=== PATIENT | male | born 1945 | race Caucasian/White ===

== ENCOUNTER 2016-05-17 15:22 | Outpatient (CLI) | payer MEDICARE, MEDICAID | END 2016-05-17 15:23 | disposition critical access hospital (66) | DX: S89.81XA Other specified injuries of right lower leg, initial encounter (principal); W32.0XXA Accidental handgun discharge, initial encounter; Y92.199 Unspecified place in other specified residential institution as the place of occurrence of the external cause | CPT/HCPCS: A0425; A0429 ==

== ENCOUNTER 2016-05-17 15:41 | Emergency (ER) | payer MEDICARE, MEDICAID ==
[2016-05-17] MEDS ORDERED: TETANUS/DIPHTHERIA/PERTUSSIS 0.5 ML SYRINGE IM ONE (15:55)
[2016-05-17] MEDS: TETANUS/DIPHTHERIA/PERTUSSIS 0.5 ML SYRINGE IM ONE (16:02)
[2016-05-17] MEDS ORDERED: CLINDAMYCIN 900 MG/50 ML 50 ML IV ONE (16:06)
[2016-05-17] MEDS: CLINDAMYCIN 900 MG/50 ML 50 ML IV ONE (16:07)
== END 2016-05-17 17:14 | disposition home or self-care (01) ==
DX: S81.031A Puncture wound without foreign body, right knee, initial encounter (principal); W32.0XXA Accidental handgun discharge, initial encounter; Z23 Encounter for immunization; Z88.0 Allergy status to penicillin; Z86.73 Personal history of transient ischemic attack (TIA), and cerebral infarction without residual deficits; Z79.82 Long term (current) use of aspirin

== ENCOUNTER 2016-08-03 19:26 | Emergency (ER) | payer MEDICARE, MEDICAID ==
--- NOTE | 2016-08-03 21:10 | ED Physician Documentation ---
PD HPI BACK PAIN - Stated complaint Stated Complaint: BACK PAIN - Chief complaint Chief Complaint: Back Pain - History obtained from History obtained from: Patient - History of Present Illness Timing - onset: How many days ago (1-2) Timing - details: Gradual onset, Still present, Waxing and waning Location: Lower, Right (radiating down right leg posteriorly.) Quality: Pain, Spasm Associated symptoms: No: Fever, Weakness, Numbness Improves with: Rest Worsened by: Movement Contributing factors: No: Lifting, Twisting Similar symptoms before: Has not had sx before Recently seen: Not recently seen Review of Systems Constitutional: denies: Fever, Chills Nose: denies: Rhinorrhea / runny nose, Congestion Throat: denies: Sore throat Respiratory: denies: Dyspnea, Cough GI: denies: Nausea, Vomiting, Diarrhea : denies: Dysuria, Frequency PD PAST MEDICAL HISTORY - Past Medical History Cardiovascular: None Respiratory: None Neuro: CVA Endocrine/Autoimmune: None GI: None : None HEENT: Chronic hearing loss Psych: None Musculoskeletal: None Derm: None - Past Surgical History Past Surgical History: Yes HEENT: Tonsil/Adenoidectomy Derm: Other - Present Medications Home Medications: Ambulatory Orders Medication Instructions Recorded Confirmed Aspirin [Aspir 81] 162 mg PO DAILY 04/25/13 08/15/14 Amlodipine Besylate [Norvasc] 10 mg DAILY 10/31/13 08/15/14 Atorvastatin [Lipitor] 40 mg QPM 10/31/13 08/15/14 Carvedilol 6.25 mg BID 10/31/13 08/15/14 Cetirizine HCl [Zyrtec] 10 mg DAILY 10/31/13 08/15/14 Fenofibrate 160 mg DAILY 10/31/13 08/15/14 Meclizine [Antivert] 25 mg PO Q6H PRN #20 tablet 10/31/13 08/15/14 Montelukast Sodium [Singulair] 10 mg DAILY 10/31/13 08/15/14 Potassium Chloride 10 meq DAILY 10/31/13 08/15/14 Valsartan/Hydrochlorothiazide DAILY 10/31/13 08/15/14 [Valsartan-Hctz 320-25 mg Tab] Clindamycin HCl 300 mg PO Q6H 7 Days 03/13/17 Dexamethasone [Decadron] 4 mg PO DAILY #5 tablet 08/03/16 Methocarbamol [Robaxin] 500 mg PO Q6H PRN #25 tablet 08/03/16 Naproxen 375 mg PO BID #20 tablet 08/03/16 Oxycodone HCl/Acetaminophen 1 each PO Q6H PRN #20 tablet 08/03/16 [Percocet 5-325 mg Tablet] - Allergies Allergies/Adverse Reactions: Allergies Allergy/AdvReac Type Severity Reaction Status Date / Time Penicillins Allergy swelling Verified 04/25/13 11:38 - Social History Does the pt smoke?: No Smoking Status: Never smoker Does the pt drink ETOH?: Yes Does the pt have substance abuse?: No - Immunizations Immunizations are current?: No Immunizations: TDAP current <10years - POLST Patient has POLST: No PD ED PE NORMAL - Vitals Vital signs reviewed: Yes - General General: Alert and oriented X 3, Well developed/nourished - Abdomen Abdomen: Soft, Non tender - Back Back: No CVA TTP, No spinal TTP, Other - Derm Derm: Normal color, Warm and dry, No rash - Neuro Neuro: Alert and oriented X 3, No motor deficit, No sensory deficit, Normal speech Results - Vitals Vitals: Oxygen O2 Source Room air PD MEDICAL DECISION MAKING - ED course Complexity details: considered differential (seems like muscular pain and no red flags. ), d/w patient Departure - Departure Disposition: 01 Home, Self Care Clinical Impression: Back strain Qualifiers: Encounter type: initial encounter Qualified Code(s): S39.012A - Strain of muscle, fascia and tendon of lower back, initial encounter Condition: Stable Record reviewed to determine appropriate education?: Yes Instructions: ED Sciatica, ED Low Back Pain Injury Prescriptions: Dexamethasone [Decadron] 4 mg PO DAILY #5 tablet Naproxen 375 mg PO BID #20 tablet Oxycodone HCl/Acetaminophen [Percocet 5-325 mg Tablet] 1 each PO Q6H PRN #20 tablet PRN Reason: Pain Methocarbamol [Robaxin] 500 mg PO Q6H PRN #25 tablet PRN Reason: Spasms Comments: Heat and gentle stretching for the low back. Naproxen twice daily for 7-10 days. Decadron steroid daily for 5 days. Robaxin muscle relaxant for stiffness/ spasms. Add percocet if needed for pain. Recheck with PMD if not improved over the next days/week. physician primary care sports medicine is good too for this. Discharge Date/Time: 08/03/16 22:04
[2016-08-03] MEDS ORDERED: oxyCODONE/ACET 5/325 Prepack 4 PO STA (21:27)
[2016-08-03] MEDS ORDERED: NAPROXEN 250 MG TABLET PO STA (21:27)
[2016-08-03] MEDS ORDERED: METHOCARBAMOL 500 MG TABLET PO STA (21:27)
[2016-08-03] MEDS ORDERED: DEXAMETHASONE 10 MG/ML VIAL PO STA (21:27)
[2016-08-03] MEDS ORDERED: oxyCOD/ACETAMIN 5 MG/325 MG TABLET PO STA (21:27)
[2016-08-03] MEDS ORDERED: oxyCOD/ACETAMIN 5 MG/325 MG TABLET PO ONE (21:37)
[2016-08-03] MEDS ORDERED: oxyCODONE/ACET 5/325 Prepack 4 PO ONE (21:38)
[2016-08-03] MEDS ORDERED: NAPROXEN 250 MG TABLET PO ONE (21:38)
[2016-08-03] MEDS ORDERED: CHERRY SYRUP 10 ML UDC PO ONE (21:39)
[2016-08-03] MEDS ORDERED: METHOCARBAMOL 500 MG TABLET PO ONE (21:39)
[2016-08-03] MEDS ORDERED: DEXAMETHASONE 10 MG/ML VIAL ONE (21:39)
[2016-08-03 22:01] VITALS: BP 186/89
== END 2016-08-03 22:04 | disposition home or self-care (01) ==
LOC: ED 19:26
DX: S39.012A Strain of muscle, fascia and tendon of lower back, initial encounter (principal); X58.XXXA Exposure to other specified factors, initial encounter; Z86.73 Personal history of transient ischemic attack (TIA), and cerebral infarction without residual deficits; Z79.82 Long term (current) use of aspirin
CPT/HCPCS: 99283; A9270

== ENCOUNTER 2016-08-20 03:41 | Emergency (ER) | payer MEDICARE, MEDICAID ==
--- NOTE | 2016-08-20 04:18 | ED Physician Documentation ---
PD HPI NVD - Stated complaint Stated Complaint: NAUSEA - Chief complaint Chief Complaint: Abd Pain - History obtained from History obtained from: Patient - History of Present Illness Timing - onset: Enter time (02:30), Today Timing - details: Abrupt onset Pain level max: 0 Pain level now: 0 Associated symptoms: Dizzy. No: Abdominal pain Improved by: Laying still Worsened by: Moving Recently seen: Not recently seen - Additonal information Additional information: c/o sudden onset dizziness with nausea and vomiting, onset while in bed 2:30 AM this morning. symptoms worse with turning head Review of Systems Constitutional: denies: Fever Eyes: reports: Reviewed and negative Ears: reports: Reviewed and negative Nose: reports: Reviewed and negative Cardiac: reports: Reviewed and negative GI: reports: Nausea, Vomiting. denies: Abdominal Pain Neurologic: denies: Headache PD PAST MEDICAL HISTORY - Past Medical History Cardiovascular: None Respiratory: None Neuro: CVA Endocrine/Autoimmune: None GI: None : None HEENT: Chronic hearing loss Psych: None Musculoskeletal: None Derm: None - Past Surgical History Past Surgical History: Yes HEENT: Tonsil/Adenoidectomy Derm: Other - Present Medications Home Medications: Ambulatory Orders Medication Instructions Recorded Confirmed Aspirin [Aspir 81] 162 mg PO DAILY 04/25/13 08/15/14 Amlodipine Besylate [Norvasc] 10 mg DAILY 10/31/13 08/15/14 Atorvastatin [Lipitor] 40 mg QPM 10/31/13 08/15/14 Carvedilol 6.25 mg BID 10/31/13 08/15/14 Cetirizine HCl [Zyrtec] 10 mg DAILY 10/31/13 08/15/14 Fenofibrate 160 mg DAILY 10/31/13 08/15/14 Meclizine [Antivert] 25 mg PO Q6H PRN #20 tablet 10/31/13 08/15/14 Montelukast Sodium [Singulair] 10 mg DAILY 10/31/13 08/15/14 Potassium Chloride 10 meq DAILY 10/31/13 08/15/14 Valsartan/Hydrochlorothiazide DAILY 10/31/13 08/15/14 [Valsartan-Hctz 320-25 mg Tab] Clindamycin HCl 300 mg PO Q6H 7 Days 05/17/16 Dexamethasone [Decadron] 4 mg PO DAILY #5 tablet 08/03/16 Methocarbamol [Robaxin] 500 mg PO Q6H PRN #25 tablet 08/03/16 Naproxen 375 mg PO BID #20 tablet 08/03/16 Oxycodone HCl/Acetaminophen 1 each PO Q6H PRN #20 tablet 08/03/16 [Percocet 5-325 mg Tablet] Meclizine [Antivert] 25 mg PO Q6H PRN #20 tablet 08/20/16 - Allergies Allergies/Adverse Reactions: Allergies Allergy/AdvReac Type Severity Reaction Status Date / Time Penicillins Allergy swelling Verified 04/25/13 11:38 - Social History Does the pt smoke?: No Smoking Status: Never smoker Does the pt drink ETOH?: Yes Does the pt have substance abuse?: No - Immunizations Immunizations are current?: No Immunizations: TDAP current <10years - POLST Patient has POLST: No PD ED PE NORMAL - Vitals Vital signs reviewed: Yes - General General: Alert and oriented X 3, Well developed/nourished, Other (NAD, but maintains head in same position (looking straight ahead) during H+P, as symptoms worse with turning of head) - HEENT HEENT: PERRL, EOMI, Moist mucous membranes - Neck Neck: Supple, no meningeal sign - Cardiac Cardiac: RRR, No murmur - Abdomen Abdomen: Soft, Non tender - Neuro Neuro: Alert and oriented X 3, recruitment officer 2-12 intact, No motor deficit, No sensory deficit, Normal speech Results - Vitals Vitals: Oxygen O2 Source Room air - Labs Labs: Laboratory Tests 08/20/16 08/20/16 04:47 04:47 WBC 9.2 RBC 5.26 Hgb 15.4 Hct 44.1 MCV 83.9 MCH 29.3 MCHC 34.9 RDW 14.2 Plt Count 151 MPV 7.5 Neut # 7.9 H Lymph # 0.9 L [place] # 0.4 Eos # 0.0 Baso # 0.0 Absolute Nucleated RBC 0.00 Nucleated RBCs 0.0 Sodium 141 Potassium 3.2 L Chloride 107 Carbon Dioxide 26 Anion Gap 8.0 BUN 17 Creatinine 0.9 Estimated GFR (MDRD) 83 L Glucose 118 H Calcium 8.5 - Rads (name of study) CT head Radiology: Prelim report reviewed, See rad report PD MEDICAL DECISION MAKING - ED course Complexity details: reviewed results, re-evaluated patient, considered differential, d/w patient ED course: On reevaluation, after tests resulted, patient reported significant improvement in symptoms (given PO antivert while awaiting test results). Results reviewed with patient and plan to d/c discussed; he is comfortable with plan to d/c home , return if worse Departure - Departure Disposition: 01 Home, Self Care Clinical Impression: Vertigo Condition: Good Instructions: ED Vertigo Unspecified Follow-Up: [facility] [Provider Group] [facility] [Provider Group] Prescriptions: Meclizine [Antivert] 25 mg PO Q6H PRN #20 tablet PRN Reason: Vertigo Discharge Date/Time: 08/20/16 06:30
[2016-08-20] MEDS ORDERED: MECLIZINE 12.5 MG TABLET PO ONE (04:39)
[2016-08-20] MEDS: MECLIZINE 12.5 MG TABLET PO STA (04:48)
[2016-08-20 04:53] LABS: BASOPHILS % (AUTO) 0.4 %; EOSINOPHILS % (AUTO) 0.5 %; HCT - HEMATOCRIT 44.1 % (42.0-52.0); HGB - HEMOGLOBIN 15.4 g/dL (14.0-18.0); LYMPHOCYTES # (AUTO) 0.9 10^3/uL (1.5-3.5); LYMPHOCYTES % (AUTO) 9.6 %; MEAN CORPUSCULAR HEMOGLOBIN 29.3 pg (27.0-31.0); MEAN CORPUSCULAR HGB CONC 34.9 g/dL (32.0-36.0); MEAN CORPUSCULAR VOLUME 83.9 fL (80.0-94.0); MEAN PLATELET VOLUME 7.5 fL (7.4-11.4); MONOCYTES # (AUTO) 0.4 10^3/uL (0.0-1.0); MONOCYTES % (AUTO) 4.2 %; NEUTROPHILS # (AUTO) 7.9 10^3/uL (1.5-6.6); NEUTROPHILS % (AUTO) 85.3 %; RED BLOOD COUNT 5.26 10^6/uL (4.70-6.10); RED CELL DISTRIBUTION WIDTH 14.2 % (12.0-15.0); UNCORRECTED WHITE BLOOD COUNT 9.2 x10^3/uL; WHITE BLOOD COUNT 9.2 x10^3/uL (4.8-10.8)
[2016-08-20 05:01] LABS: CALCIUM 8.5 mg/dL (8.5-10.3); CREATININE 0.9 mg/dL (0.6-1.2); POTASSIUM 3.2 mmol/L (3.5-5.0)
--- NOTE | 2016-08-20 05:32 | CT Preliminary Report ---
Exam: CT Head W/O IMPRESSION: No acute intracranial process identified. Stable findings since 10/31/2013. [facility] SITE ID: [id number]
--- NOTE | 2016-08-20 05:35 | CT Report ---
EXAM: CT HEAD EXAM DATE: 08/20/2016 05:17 AM. CLINICAL HISTORY: Dizziness. COMPARISON: 10/31/2013. TECHNIQUE: Multiaxial CT images were obtained from the foramen magnum to the vertex. IV contrast: Non e. Reformats: Coronal. In accordance with CT protocol optimization, one or more of the following dose reduction techniques w ere utilized for this exam: automated exposure control, adjustment of mA and/or KV based on patient s ize, or use of iterative reconstructive technique. FINDINGS: Parenchyma: No intraparenchymal hemorrhage. No evidence of mass, midline shift, or CT findings of acu te infarction. Dsouza-white differentiation is distinct. Small, old area of injury right thalamus/poste rior limb internal capsule, unchanged. Extraaxial Spaces: Normal for age. No subdural or epidural collections identified. Ventricles: Normal in size and position. Sinuses: Imaged paranasal sinuses, orbits, and mastoids show no significant abnormality. Bones: No evidence of fracture or calvarial defect. Other: None. IMPRESSION: No acute intracranial process identified. Stable findings since 10/31/2013. [facility] Referring Provider Line: [phone] SITE ID: [id number]
[2016-08-20 06:29] VITALS: BP 189/90
== END 2016-08-20 06:30 | disposition home or self-care (01) ==
LOC: ED 03:41
DX: R42 Dizziness and giddiness (principal); Z86.73 Personal history of transient ischemic attack (TIA), and cerebral infarction without residual deficits
CPT/HCPCS: 36415; 70450; 80048; 85025; 99283

== ENCOUNTER 2016-10-31 18:10 | Emergency (ER) | payer MEDICARE, MEDICAID ==
[2016-10-31 18:19] VITALS: BP 171/91
--- NOTE | 2016-10-31 18:30 | ED Physician Documentation ---
PD HPI BACK INJURY - Stated complaint Stated Complaint: BACK PAIN/ARM LAC - History obtained from History obtained from: Patient - History of Present Illness Location: Other (He was working at home, standing up on a cinder block to fix something in the cinderblock tilted and he fell hitting his back and right forearm on the ground. The right forearm is not painful but does have a scrape on it, his last tetanus shot he says was about 5 months ago. He has severe right-sided mid and low back pain that is worse with motion. No head or neck injury. He can walk and bear weight without issue.) Review of Systems Constitutional: denies: Fever, Chills Cardiac: reports: Reviewed and negative Respiratory: reports: Reviewed and negative GI: reports: Reviewed and negative PD PAST MEDICAL HISTORY - Past Medical History Cardiovascular: None Respiratory: None Neuro: CVA Endocrine/Autoimmune: None GI: None : None HEENT: Chronic hearing loss Psych: None Musculoskeletal: None Derm: None - Past Surgical History Past Surgical History: Yes HEENT: Tonsil/Adenoidectomy Derm: Other - Present Medications Home Medications: Ambulatory Orders Medication Instructions Recorded Confirmed Amlodipine Besylate [Norvasc] 10 mg PO DAILY 10/31/13 10/31/16 Atorvastatin [Lipitor] 40 mg PO QPM 10/31/13 10/31/16 Carvedilol 6.25 mg PO BID 10/31/13 10/31/16 Cetirizine HCl [Zyrtec] 10 mg PO DAILY 10/31/13 10/31/16 Fenofibrate 160 mg PO DAILY 10/31/13 10/31/16 Montelukast Sodium [Singulair] 10 mg PO DAILY 10/31/13 10/31/16 Potassium Chloride 10 meq PO DAILY 10/31/13 10/31/16 Valsartan/Hydrochlorothiazide 1 tab PO DAILY 10/31/13 10/31/16 [Valsartan-Hctz 320-25 mg Tab] Dexamethasone [Decadron] 4 mg PO DAILY #5 tablet 08/03/16 10/31/16 Methocarbamol [Robaxin] 500 mg PO Q6H PRN #25 tablet 08/03/16 10/31/16 HYDROcod/ACETAM 5/325 [[place] 5/325] 1 - 2 ea PO Q6H PRN #20 tablet 10/31/16 - Allergies Allergies/Adverse Reactions: Allergies Allergy/AdvReac Type Severity Reaction Status Date / Time Penicillins Allergy swelling Verified 10/31/16 18:16 - Social History Does the pt smoke?: No Smoking Status: Never smoker Does the pt drink ETOH?: Yes Does the pt have substance abuse?: No - Immunizations Immunizations are current?: No Immunizations: TDAP current <10years - POLST Patient has POLST: No PD ED PE NORMAL - Vitals Vital signs reviewed: Yes - General General: Alert and oriented X 3, Well developed/nourished, Other (Comfortable at rest, winces with motion) - HEENT HEENT: PERRL, EOMI - Neck Neck: Supple, no meningeal sign, No bony TTP - Cardiac Cardiac: RRR, No murmur - Respiratory Respiratory: No respiratory distress, Clear bilaterally - Abdomen Abdomen: Non tender - Back Back: Other (He does have some midline spinal tenderness, maybe around L2 and over the right suggesting may be a transverse process fracture. The lower ribs are nontender posteriorly.) - Derm Derm: Normal color, Warm and dry - Extremities Extremities: No deformity, No tenderness to palpate, No edema, No calf tenderness / cord, Other (There are linear abrasions on the medial side of the right forearm but without underlying bony tenderness or limited range of motion. The remainder of his extremities are nontender.) - Neuro Neuro: Alert and oriented X 3, Normal speech - Psych Psych: Normal mood, Normal affect Results - Vitals Vitals: Vital Signs - 24 hr 10/31/16 18:16 Temperature 36.4 C L Heart Rate 56 L Respiratory 18 Rate Blood Pressure 171/91 H O2 Saturation 100 Oxygen O2 Source Room air - Rads (name of study) Ct L spine Radiology: EMP read contemporaneously (Nondisplaced fracture of the right L1 transverse process and degenerative changes) R forearm Radiology: EMP read contemporaneously (normal) PD MEDICAL DECISION MAKING - ED course ED course: 71-year-old after a fall from just above ground-level, clinically with what is likely a transverse process fracture which is shown on CT, no other major injuries identified. He was given 6 Vicodin here to go. The patient and family were counseled as to the diagnosis and need for follow- up. I counseled the patient with regard to signs and symptoms that would necessitate an urgent reevaluation in the emergency department. They understand they are welcome to return at any time if worse or if not improving as expected. This document was made in part using voice recognition software. While efforts are made to proofread this documents, sound alike and grammatical errors may occur. Departure - Departure Disposition: 01 Home, Self Care Clinical Impression: Lumbar transverse process fracture Qualifiers: Encounter type: initial encounter Fracture type: closed Qualified Code(s): S32.008A - Other fracture of unspecified lumbar vertebra, initial encounter for closed fracture Contusion of right lower arm Qualifiers: Encounter type: initial encounter Qualified Code(s): S50.11XA - Contusion of right forearm, initial encounter Fall Qualifiers: Encounter type: initial encounter Qualified Code(s): W19.XXXA - Unspecified fall, initial encounter Abrasion of right arm Qualifiers: Encounter type: initial encounter Qualified Code(s): S40.811A - Abrasion of right upper arm, initial encounter Condition: Good Record reviewed to determine appropriate education?: Yes Instructions: ED Abrasion, ED Fx Transverse Spinous Process Prescriptions: HYDROcod/ACETAM 5/325 [[place] 5/325] 1 - 2 ea PO Q6H PRN #20 tablet PRN Reason: Pain Comments: Call your doctor to arrange a follow-up appointment, make the next available appointment. In the interim, return anytime if worse or if new symptoms develop. Your blood pressure was elevated today on check into the emergency department. This does not mean that you have hypertension, it is a common phenomenon to come to the emergency department and have elevated blood pressure. I recommend that she see her primary care physician within the week to have it rechecked when you are feeling better. Do not drink or drive while taking narcotic pain medication. Note that many narcotic pain relievers also contain Tylenol/acetaminophen. Please ensure that your total dose of acetaminophen from all sources does not exceed 3 g (3000 mg) per day. You may get constipated while on this medication. Take a stool softener such as Colace twice a day while you are on it. Also add an kzdy-zfi-furyklg laxative such as senna or MiraLAX on any day that you do not have a bowel movement. If you received a narcotic pain medication or sedative while in the emergency department, do not drive for the next 24 hours. Discharge Date/Time: 10/31/16 19:53
[2016-10-31] MEDS ORDERED: HYDROcod/ACETAM 5/325 MG TABLET PO STA (18:48)
[2016-10-31] MEDS ORDERED: HYDROcod/ACET 5/325 Prepack 6 PO STA (18:48)
[2016-10-31] MEDS ORDERED: HYDROcod/ACETAM 5/325 MG TABLET ONE (18:57)
[2016-10-31] MEDS ORDERED: HYDROcod/ACET 5/325 Prepack 6 PO ONE (18:57)
--- NOTE | 2016-10-31 19:14 | CT Preliminary Report ---
Exam: CT Lumbar Spine W/O IMPRESSION: Nondisplaced fracture of the right L1 transverse process. Degenerative changes. [facility] SITE ID: [id number]
--- NOTE | 2016-10-31 19:17 | CT Report ---
EXAM: CT LUMBAR SPINE WITHOUT CONTRAST EXAM DATE: 10/31/2016 06:48 PM. CLINICAL HISTORY: Back inj. COMPARISONS: None. TECHNIQUE: Thin-section axial images were acquired of the lumbar spine from T12 to S1 without contras t. Post-processing: Coronal and sagittal reformats. Other: None. In accordance with CT protocol optimization, one or more of the following dose reduction techniques w ere utilized for this exam: automated exposure control, adjustment of mA and/or KV based on patient s ize, or use of iterative reconstructive technique. FINDINGS: Alignment: Normal. No scoliosis or spondylolisthesis. Bones: Five [id number] lumbar vertebral bodies are present. There is a nondisplaced fracture of the right transverse process of L1. Sclerotic foci are seen in the L4 and S1 vertebral bodies, likely representing bone islands. Disk Levels/Facets: T12-L1: Unremarkable. L1-L2: Unremarkable. L2-L3: Mild broad-based disk bulge, without significant spinal or foraminal narrowing. L3-L4: Mild broad-based disk bulge, without significant spinal or foraminal narrowing. L4-L5: Moderate broad-based disk bulge, with facet hypertrophy, producing bilateral foraminal narrowi ng. No significant spinal stenosis. L5-S1: Bulky facet osteophytes and disk osteophyte, producing bilateral foraminal narrowing. Musculature: Normal. No fatty atrophy. Other: The visualized pelvic cavity is unremarkable. IMPRESSION: Nondisplaced fracture of the right L1 transverse process. Degenerative changes. [facility] Referring Provider Line: [phone] SITE ID: [id number]
--- NOTE | 2016-10-31 19:22 | XRAY Preliminary Report ---
Exam: XR Forearm RT IMPRESSION: No evidence of fracture or dislocation. [facility] SITE ID: [id number]
--- NOTE | 2016-10-31 19:24 | XRAY Report ---
EXAM: RIGHT FOREARM RADIOGRAPHY EXAM DATE: 10/31/2016 07:14 PM. CLINICAL HISTORY: Pain COMPARISON: None. TECHNIQUE: 2 views. FINDINGS: Bones: Normal. No fractures or bone lesions. Joints: Normal. No effusions or subluxations in the visualized wrist or elbow joints. Soft Tissues: No significant abnormalities. IMPRESSION: No evidence of fracture or dislocation. [facility] Referring Provider Line: [phone] SITE ID: [id number]
== END 2016-10-31 19:53 | disposition home or self-care (01) ==
LOC: ED 18:10
DX: S32.008A Other fracture of unspecified lumbar vertebra, initial encounter for closed fracture (principal); S50.11XA Contusion of right forearm, initial encounter; W19.XXXA Unspecified fall, initial encounter; Y93.H9 Activity, other involving exterior property and land maintenance, building and construction; Y92.096 Garden or yard of other non-institutional residence as the place of occurrence of the external cause; Z86.73 Personal history of transient ischemic attack (TIA), and cerebral infarction without residual deficits
CPT/HCPCS: 72131; 73090; 99283; 99284; A9270

== ENCOUNTER 2016-11-01 13:26 | Emergency (ER) | payer MEDICARE, MEDICAID ==
[2016-11-01] MEDS ORDERED: KETOROLAC 60 MG/2 ML VIAL IM STA (15:32)
[2016-11-01] MEDS ORDERED: HYDROmorphone 1 MG/ML SYRINGE IM STA (15:32)
[2016-11-01] MEDS ORDERED: METHOCARBAMOL 500 MG TABLET PO STA (15:32)
--- NOTE | 2016-11-01 15:35 | ED Physician Documentation ---
History of Present Illness - Stated complaint Stated Complaint: BACK/RIB PX - Chief complaint Chief Complaint: General - History obtained from History obtained from: Patient - History of Present Illness Timing: Other (Seen here by me yesterday after a fall and has an L1 transverse process fracture. Despite taking hydrocodone overnight he did not sleep at all and every time he moves he develops a burning pain focused over the lumbar spine that is quite severe.) Review of Systems Constitutional: denies: Fever, Chills, Myalgias : denies: Dysuria, Frequency Skin: denies: Rash, Lesions Musculoskeletal: denies: Neck pain PD PAST MEDICAL HISTORY - Past Medical History Cardiovascular: None Respiratory: None Neuro: CVA Endocrine/Autoimmune: None GI: None : None HEENT: Chronic hearing loss Psych: None Musculoskeletal: None Derm: None - Past Surgical History Past Surgical History: Yes HEENT: Tonsil/Adenoidectomy Derm: Other - Present Medications Home Medications: Ambulatory Orders Medication Instructions Recorded Confirmed Amlodipine Besylate [Norvasc] 10 mg PO DAILY 10/31/13 10/31/16 Atorvastatin [Lipitor] 40 mg PO QPM 10/31/13 10/31/16 Carvedilol 6.25 mg PO BID 10/31/13 10/31/16 Cetirizine HCl [Zyrtec] 10 mg PO DAILY 10/31/13 10/31/16 Fenofibrate 160 mg PO DAILY 10/31/13 10/31/16 Montelukast Sodium [Singulair] 10 mg PO DAILY 10/31/13 10/31/16 Potassium Chloride 10 meq PO DAILY 10/31/13 10/31/16 Valsartan/Hydrochlorothiazide 1 tab PO DAILY 10/31/13 10/31/16 [Valsartan-Hctz 320-25 mg Tab] Dexamethasone [Decadron] 4 mg PO DAILY #5 tablet 08/03/16 10/31/16 Methocarbamol [Robaxin] 500 mg PO Q6H PRN #25 tablet 08/03/16 10/31/16 HYDROcod/ACETAM 5/325 [[place] 5/325] 1 - 2 ea PO Q6H PRN #20 tablet 10/31/16 Gabapentin 300 mg PO TID #30 capsule 11/01/16 Methocarbamol [Robaxin] 500 mg PO Q6H #20 tablet 11/01/16 Oxycodone HCl/Acetaminophen 1 - 2 tab PO Q4H PRN #15 tablet 11/01/16 [Percocet 5-325 mg Tablet] - Allergies Allergies/Adverse Reactions: Allergies Allergy/AdvReac Type Severity Reaction Status Date / Time Penicillins Allergy swelling Verified 11/01/16 13:44 - Social History Does the pt smoke?: No Smoking Status: Never smoker Does the pt drink ETOH?: Yes Does the pt have substance abuse?: No - Immunizations Immunizations are current?: No Immunizations: TDAP current <10years - POLST Patient has POLST: No PD ED PE NORMAL - Vitals Vital signs reviewed: Yes - General General: Alert and oriented X 3, No acute distress - Abdomen Abdomen: Soft, Non tender - Extremities Extremities: No deformity, No tenderness to palpate - Neuro Neuro: Alert and oriented X 3, Normal speech Results - Vitals Vitals: Vital Signs - 24 hr 11/01/16 13:40 Temperature 36.4 C L Heart Rate 63 Respiratory 16 Rate Blood Pressure 167/85 H O2 Saturation 97 Oxygen O2 Source Room air PD MEDICAL DECISION MAKING - ED course ED course: 71-year-old gentleman with L1 transverse process fracture bounces back with inadequate pain control. He was administered Toradol, Dilaudid, and Robaxin here and prescriptions as shown. No other new evident injuries. Departure - Departure Disposition: 01 Home, Self Care Clinical Impression: Lumbar transverse process fracture Qualifiers: Encounter type: initial encounter Fracture type: closed Qualified Code(s): S32.008A - Other fracture of unspecified lumbar vertebra, initial encounter for closed fracture Condition: Good Record reviewed to determine appropriate education?: Yes Instructions: ED Fx Transverse Spinous Process Prescriptions: Gabapentin 300 mg PO TID #30 capsule Oxycodone HCl/Acetaminophen [Percocet 5-325 mg Tablet] 1 - 2 tab PO Q4H PRN #15 tablet PRN Reason: Pain Methocarbamol [Robaxin] 500 mg PO Q6H #20 tablet Comments: Call your doctor to arrange a follow-up appointment, make the next available appointment. In the interim, return anytime if worse or if new symptoms develop. Do not drink or drive while taking narcotic pain medication. Note that many narcotic pain relievers also contain Tylenol/acetaminophen. Please ensure that your total dose of acetaminophen from all sources does not exceed 3 g (3000 mg) per day. You may get constipated while on this medication. Take a stool softener such as Colace twice a day while you are on it. Also add an qync-usv-nvvrten laxative such as senna or MiraLAX on any day that you do not have a bowel movement. If you received a narcotic pain medication or sedative while in the emergency department, do not drive for the next 24 hours. Your blood pressure was elevated today on check into the emergency department. This does not mean that you have hypertension, it is a common phenomenon to come to the emergency department and have elevated blood pressure. I recommend that she see her primary care physician within the week to have it rechecked when you are feeling better.
[2016-11-01] MEDS ORDERED: HYDROmorphone 1 MG/ML SYRINGE ONE (15:43)
[2016-11-01] MEDS ORDERED: METHOCARBAMOL 500 MG TABLET PO ONE (15:44)
[2016-11-01] MEDS ORDERED: KETOROLAC 60 MG/2 ML VIAL ONE (15:44)
[2016-11-01 16:16] VITALS: BP 178/92
== END 2016-11-01 16:14 | disposition home or self-care (01) ==
LOC: ED 13:26
DX: S32.018A Other fracture of first lumbar vertebra, initial encounter for closed fracture (principal); W19.XXXA Unspecified fall, initial encounter; R03.0 Elevated blood-pressure reading, without diagnosis of hypertension; Z86.73 Personal history of transient ischemic attack (TIA), and cerebral infarction without residual deficits
CPT/HCPCS: 96372; 99282; 99284; A9270; J1170

== ENCOUNTER 2017-01-20 16:50 | Emergency (ER) | payer MEDICARE, MEDICAID ==
[2017-01-20] MEDS ORDERED: SODIUM CHLORIDE 0.9% 1,000 ML IV ONE (17:08)
[2017-01-20 17:21] LABS: BASOPHILS # (AUTO) 0.1 10^3/uL (0.0-0.1); BASOPHILS % (AUTO) 0.7 %; EOSINOPHILS % (AUTO) 0.2 %; HCT - HEMATOCRIT 46.2 % (42.0-52.0); HGB - HEMOGLOBIN 15.8 g/dL (14.0-18.0); LYMPHOCYTES # (AUTO) 1.4 10^3/uL (1.5-3.5); LYMPHOCYTES % (AUTO) 16.2 %; MEAN CORPUSCULAR HGB CONC 34.3 g/dL (32.0-36.0); MEAN CORPUSCULAR VOLUME 84.5 fL (80.0-94.0); MEAN PLATELET VOLUME 7.6 fL (7.4-11.4); MONOCYTES # (AUTO) 0.4 10^3/uL (0.0-1.0); MONOCYTES % (AUTO) 4.8 %; NEUTROPHILS # (AUTO) 6.9 10^3/uL (1.5-6.6); NEUTROPHILS % (AUTO) 78.1 %; NUCLEATED RED BLOOD CELLS AUTO 0.1 /100WBC; RED BLOOD COUNT 5.46 10^6/uL (4.70-6.10); RED CELL DISTRIBUTION WIDTH 14.7 % (12.0-15.0); UNCORRECTED WHITE BLOOD COUNT 8.9 x10^3/uL; WHITE BLOOD COUNT 8.9 x10^3/uL (4.8-10.8)
--- NOTE | 2017-01-20 17:30 | XRAY Preliminary Report ---
Exam: XR CHEST 1 VIEW IMPRESSION: No acute disease. [facility] SITE ID: [id number]
[2017-01-20 17:31] LABS: PT - PROTHROMBIN TIME 11.6 secs (9.9-12.6)
[2017-01-20 17:32] LABS: ALBUMIN/GLOBULIN RATIO 1.7 (1.0-2.2); BILIRUBIN,TOTAL 2.7 mg/dL (0.2-1.0); CALCIUM 9.2 mg/dL (8.5-10.3); CREATININE 1.1 mg/dL (0.6-1.2); TOTAL PROTEIN 7.4 g/dL (6.7-8.2)
--- NOTE | 2017-01-20 17:33 | XRAY Report ---
EXAM: CHEST RADIOGRAPHY EXAM DATE: 01/20/2017 05:19 PM. CLINICAL HISTORY: Shortness of breath . COMPARISON: 05/04/2013. TECHNIQUE: 1 view. FINDINGS: Lungs/Pleura: Clear. No effusion or pneumothorax. Mediastinum: Mild cardiomegaly, probably unchanged. Upper lobe vessels not distended. Other: Degenerative changes. IMPRESSION: No acute disease. [facility] Referring Provider Line: [phone] SITE ID: [id number]
[2017-01-20 17:35] LABS: PARTIAL THROMBOPLASTIN TIME 25.1 secs (24.9-33.3)
--- NOTE | 2017-01-20 17:45 | ED Physician Documentation ---
History of Present Illness - Stated complaint Stated Complaint: DIZZY/NAUSEA/SHIVERS - Chief complaint Chief Complaint: Neuro - History obtained from History obtained from: Patient (pt reports that this morning after he woke up he had an episode of vertigo that came on suddenly and caused him to have nausea. He reports that event resolved completely with time then at about 1530 or 1600 this afternoon he had another episode of vertigo and a headache in the back of his head.) - History of Present Illness Worsened by: position Review of Systems Ten Systems: 10 systems reviewed and negative Constitutional: denies: Fever, Chills, Fatigue Eyes: denies: Loss of vision, Photophobia Ears: denies: Tinnitus/ringing Nose: denies: Rhinorrhea / runny nose, Congestion Throat: denies: Sore throat Cardiac: denies: Chest pain / pressure, Palpitations Respiratory: reports: Dyspnea. denies: Cough, Wheezing GI: reports: Nausea (because of the vertiog). denies: Abdominal Pain, Vomiting , Constipation, Diarrhea : denies: Dysuria, Frequency Skin: denies: Rash, Lesions Musculoskeletal: denies: Neck pain Neurologic: reports: Headache. denies: Generalized weakness, Focal weakness, Numbness, Difficulty speaking, Near syncope, Syncope, Confused, Head injury, LOC PD PAST MEDICAL HISTORY - Past Medical History Cardiovascular: Hypertension Respiratory: None Neuro: CVA Endocrine/Autoimmune: None GI: None : None HEENT: Chronic hearing loss Psych: None Musculoskeletal: None Derm: None - Past Surgical History Past Surgical History: Yes HEENT: Tonsil/Adenoidectomy Derm: Other - Allergies Allergies/Adverse Reactions: Allergies Allergy/AdvReac Type Severity Reaction Status Date / Time Penicillins Allergy swelling Verified 01/20/17 17:17 - Social History Does the pt smoke?: No Smoking Status: Never smoker Does the pt drink ETOH?: Yes Does the pt have substance abuse?: No - Immunizations Immunizations are current?: No Immunizations: TDAP current <10years - POLST Patient has POLST: No PD ED PE NORMAL - Vitals Vital signs reviewed: Yes - General General: Alert and oriented X 3, No acute distress - HEENT HEENT: Atraumatic, PERRL, Ears normal, Moist mucous membranes - Neck Neck: Supple, no meningeal sign - Cardiac Cardiac: RRR, No murmur, No gallop - Respiratory Respiratory: No respiratory distress, Other (increased respiratory rate) - Back Back: No CVA TTP - Derm Derm: Normal color, Warm and dry, No rash - Extremities Extremities: No deformity, Normal ROM s pain, No edema - Neuro Neuro: Alert and oriented X 3, manager generation 2-12 intact, No motor deficit, No sensory deficit Eye Opening: Spontaneous Motor: Obeys Commands Verbal: Oriented GCS Score: 15 - Psych Psych: Normal mood PD ED PE EXPANDED - Neuro Neuro: Alert and Oriented X 3, Normal motor, Normal Sensation, Normal Speech, CNII-XII intact, PERRL, Cerebellar nl, Normal gait, Normal speech. No: Confused , Lethargic, Weakness, Abnormal sensation, Nystagmus, Aphasia, Dysarthria Results - Vitals Vitals: Vital Signs - 24 hr 01/20/17 01/20/17 01/20/17 16:54 17:28 18:12 Temperature 36.6 C Heart Rate 63 60 61 Respiratory 18 18 14 Rate Blood Pressure 215/99 H 185/98 H 205/95 H O2 Saturation 100 100 100 01/20/17 19:17 Temperature Heart Rate 65 Respiratory 16 Rate Blood Pressure 189/97 H O2 Saturation 100 Oxygen O2 Source Room air - EKG (time done) 1657 Rate: Rate (enter#) Rhythm: NSR [place]: Normal Intervals: Normal NM, QRS normal (496 ms). No: Prolonged QT QRS: Normal Ischemia: Normal ST segments. No: ST depression - Labs Labs: Laboratory Tests 01/20/17 01/20/17 01/20/17 17:15 17:15 17:15 WBC 8.9 RBC 5.46 Hgb 15.8 Hct 46.2 MCV 84.5 MCH 29.0 MCHC 34.3 RDW 14.7 Plt Count 193 MPV 7.6 Neut # 6.9 H Lymph # 1.4 L Carter # 0.4 Eos # 0.0 Baso # 0.1 Absolute Nucleated RBC 0.01 Nucleated RBC % 0.1 PT 11.6 INR 1.0 APTT 25.1 Sodium 139 Potassium 4.0 Chloride 103 Carbon Dioxide 27 Anion Gap 9.0 BUN 17 Creatinine 1.1 Estimated GFR (MDRD) 66 L Glucose 113 H Calcium 9.2 Total Bilirubin 2.7 H AST 21 ALT 19 Alkaline Phosphatase 85 Troponin I B-Natriuretic Peptide Total Protein 7.4 Albumin 4.7 Globulin 2.7 Albumin/Globulin Ratio 1.7 Lipase 26 01/20/17 01/20/17 17:15 17:15 WBC RBC Hgb Hct MCV MCH MCHC RDW Plt Count MPV Neut # Lymph # Carter # Eos # Baso # Absolute Nucleated RBC Nucleated RBC % PT INR APTT Sodium Potassium Chloride Carbon Dioxide Anion Gap BUN Creatinine Estimated GFR (MDRD) Glucose Calcium Total Bilirubin AST ALT Alkaline Phosphatase Troponin I < 0.04 B-Natriuretic Peptide 67 Total Protein Albumin Globulin Albumin/Globulin Ratio Lipase - Rads (name of study) CXR Radiology: Final report received, EMP read contemporaneously Head and neck CT angio Radiology: Final report received PD MEDICAL DECISION MAKING - ED course Complexity details: d/w patient ED course: Pt state that he has not taken any of his home medication in "some time" because there was a 'mix up" at the pharmacy. Pt has HTN but has not taken his medications. He reported a complete resolution of his symptoms while in the ER. CXR neg, doubt acute pathology. his sx upon presentation seemed to be made worse by his anxiety around the situation. he has a normal neuro exam. Doubt TIA or posterior circulation clot or CVA. His vertigo was sudden in onset and causing nausea and was positional and seemed to be more C/W BPPV. discussed with the pt. he was given return precautions. Departure - Departure Disposition: 01 Home, Self Care Clinical Impression: Vertigo, Thyroid nodule Hypertension Qualifiers: Hypertension type: unspecified Qualified Code(s): I10 - Essential (primary) hypertension Condition: Good Instructions: ED Dizziness UKO, Hypertension Control Follow-Up: primary,care provider [Other] Comments: You need to follow up with your primary care provider to discuss your medications. There was a thyroid nodule seen on the CT scan that we did that you need to follow up with your primary care provider to discuss further work up. Return to the ER for any new or worsening symptoms.
[2017-01-20] MEDS ORDERED: IOPAMIDOL-300 100 ML VIAL ONE (17:49)
[2017-01-20] MEDS ORDERED: IOPAMIDOL-300 100 ML VIAL IVP ONE (18:13)
--- NOTE | 2017-01-20 19:04 | CT Preliminary Report ---
Exam: CT HEAD ANGIO IMPRESSION: CT Head: 1. No intracranial hemorrhage. 2. No enhancing mass. 3. A remote ischemic event is seen along the lateral margin of the right thalamus CTA Head: 1. Areas of intracranial stenosis are discussed above. This involves both the anterior and the human factors scientist ior circulation. 2. No thrombus is present in the M1 segment of either MCA or the basilar trunk. 3. The basilar artery is small likely due to the presence of a posterior communicating artery bilater ally. 4. No aneurysm is identified. [facility] SITE ID: [id number]
--- NOTE | 2017-01-20 19:13 | CT Preliminary Report ---
Exam: CT NECK ANGIO IMPRESSION: 1. No significant atherosclerotic plaque or narrowing is seen in either cervical ICA or cervical vert ebral artery. 2. The right vertebral artery is dominant. The left vertebral artery is small throughout its course f elt to be on developmental basis. 3. There is a peripherally hypervascular nodule in the right thyroid lobe. CT cannot distinguish rain gn from malignant thyroid disease. [facility] SITE ID: [id number]
--- NOTE | 2017-01-20 19:16 | CT Report ---
EXAM: CT ANGIOGRAM NECK EXAM DATE: 01/20/2017 06:24 PM. CLINICAL HISTORY: Vertigo. Technologist note states lightheaded and nauseous this morning and afterno on. History of prior stroke COMPARISON: CT angiogram head from today. TECHNIQUE: Routine axial helical imaging was performed from the skull base through the aortic arch. I V Contrast: 80 cc Isovue 300. Reconstructions: Routine multiplanar 3D MIP reconstructions. Evaluation of arterial stenosis is based on a NASCET method of measurement. In accordance with CT protocol optimization, one or more of the following dose reduction techniques w ere utilized for this exam: automated exposure control, adjustment of mA and/or KV based on patient s ize, or use of iterative reconstructive technique. FINDINGS: Right Carotid: The common carotid, internal carotid, and external carotid arteries are widely patent. No dissection, significant atherosclerotic plaque, or calcification identified. Left Carotid: The common carotid, internal carotid, and external carotid arteries are widely patent. No dissection, significant atherosclerotic plaque, or calcification identified. Vertebrals: The right vertebral artery is dominant. The left vertebral artery is small throughout its course. No significant narrowing is seen in the dominant right vertebral artery. Great vessel origins: No high-grade stenosis Other: No mass is present in either parotid gland or submandibular gland. No mass is present in the floor of mouth or the nasopharynx. The parapharyngeal fat is symmetric. No bulky lymphadenopathy is identifie d along either jugular chain. A thyroid nodule measuring up to 12 mm in size as seen on the right. Th is is hypervascular at its periphery. No bulky lymphadenopathy is seen in the visualized upper mediastinum. No suspicious spiculated masses present within either lung apex. IMPRESSION: 1. No significant atherosclerotic plaque or narrowing is seen in either cervical ICA or cervical vert ebral artery. 2. The right vertebral artery is dominant. The left vertebral artery is small throughout its course f elt to be on developmental basis. 3. There is a peripherally hypervascular nodule in the right thyroid lobe. CT cannot distinguish rain gn from malignant thyroid disease. [facility] Referring Provider Line: [phone] SITE ID: [id number]
--- NOTE | 2017-01-20 19:17 | CT Report ---
EXAM: CT ANGIOGRAM HEAD. CT SCAN OF THE HEAD WITHOUT AND WITH CONTRAST. EXAM DATE: 01/20/2017 06:02 PM CLINICAL HISTORY: Vertigo. Technologist note states headache and nausea this morning. Stroke 8 years ago. COMPARISON: CT head 08/10/2016. TECHNIQUE: 1. Using a multidetector scanner, axial images were acquired from the foramen magnum to the skull manav trevor prior to and following contrast administration. 2. Using a multidetector scanner, high-resolution axial images were acquired from the skull base thro ugh vertex following rapid infusion of intravenous contrast. Reformats: Multiplanar MIP reformats wer e reconstructed. Nascet criteria used for stenosis measurement. IV Contrast: 80 mL Isovue-300. In accordance with CT protocol optimization, one or more of the following dose reduction techniques w ere utilized for this exam: automated exposure control, adjustment of mA and/or KV based on patient s ize, or use of iterative reconstructive technique. FINDINGS: CT HEAD: Ventricles and sulci are within normal limits. Dsouza-white matter differentiation is preserved. No int racranial hemorrhage is present. Low attenuation along the lateral margin of the right thalamus is st able consistent with a remote infarct. No enhancing mass is identified in the brain parenchyma Mastoid air cells are well aerated. Calvarium is intact. CT ANGIOGRAM HEAD: The A1 segment of the right TE is developmentally absent with an anterior communicating artery prese nt. Mild narrowing is seen involving the proximal M1 segment of the left MCA. Mild narrowing is seen throughout the M1 segment of the right MCA. There are areas of mild narrowing in the M2 segments of e ach MCA. No filling defect is identified in the M1 segment of either MCA or in the basilar trunk. A posterior communicating artery is seen bilaterally. Mild narrowing is seen involving the posterior cerebral artery bilaterally. Mild narrowing is seen involving segments of the right TE. Atherosclerotic calcification is seen involving the cavernous ICA bilaterally with mild narrowing pre sent. Mild narrowing is seen involving the V4 segment of the right vertebral artery. The basilar roscoe ry is small likely due to the presence of a posterior communicating artery bilaterally. No outpouchin g of contrast is present to suggest an aneurysm. Other: Expected enhancement is present in the major dural venous sinuses. The right transverse sinus is hypoplastic. No mass is present in either orbit. No mass is present in the nasopharynx. IMPRESSION: CT Head: 1. No intracranial hemorrhage. 2. No enhancing mass. 3. A remote ischemic event is seen along the lateral margin of the right thalamus. CTA Head: 1. Areas of intracranial stenosis are discussed above. This involves both the anterior and the ruby software developer ior circulation. 2. No thrombus is present in the M1 segment of either MCA or the basilar trunk. 3. The basilar artery is small likely due to the presence of a posterior communicating artery bilater ally. 4. No aneurysm is identified. [facility] Referring Provider Line: [phone] SITE ID: [id number]
[2017-01-20 19:44] VITALS: BP 197/92
== END 2017-01-20 19:43 | disposition home or self-care (01) ==
LOC: ED 16:50
DX: R42 Dizziness and giddiness (principal); E04.1 Nontoxic single thyroid nodule; I10 Essential (primary) hypertension; Z86.73 Personal history of transient ischemic attack (TIA), and cerebral infarction without residual deficits
CPT/HCPCS: 36415; 70496; 70498; 71010; 80053; 83690; 83880; 84484; 85025; 85610; 85730; 93005; 96360; 96361; 99284; Q9967

== ENCOUNTER 2017-02-03 08:00 | Outpatient (CLI) | payer MEDICARE, MEDICAID ==
[2017-02-03 12:27] LABS: BASOPHILS % (AUTO) 0.6 %; EOSINOPHILS % (AUTO) 0.7 %; HCT - HEMATOCRIT 43.1 % (42.0-52.0); HGB - HEMOGLOBIN 15.3 g/dL (14.0-18.0); LYMPHOCYTES # (AUTO) 1.3 10^3/uL (1.5-3.5); LYMPHOCYTES % (AUTO) 19.6 %; MEAN CORPUSCULAR HEMOGLOBIN 29.8 pg (27.0-31.0); MEAN CORPUSCULAR HGB CONC 35.4 g/dL (32.0-36.0); MEAN CORPUSCULAR VOLUME 84.2 fL (80.0-94.0); MEAN PLATELET VOLUME 7.4 fL (7.4-11.4); MONOCYTES # (AUTO) 0.4 10^3/uL (0.0-1.0); MONOCYTES % (AUTO) 5.5 %; NEUTROPHILS # (AUTO) 4.7 10^3/uL (1.5-6.6); NEUTROPHILS % (AUTO) 73.6 %; NUCLEATED RED BLOOD CELLS AUTO 0.1 /100WBC; RED BLOOD COUNT 5.12 10^6/uL (4.70-6.10); RED CELL DISTRIBUTION WIDTH 14.6 % (12.0-15.0); UNCORRECTED WHITE BLOOD COUNT 6.4 x10^3/uL; WHITE BLOOD COUNT 6.4 x10^3/uL (4.8-10.8)
[2017-02-03 12:49] LABS: ALBUMIN/GLOBULIN RATIO 1.6 (1.0-2.2); BILIRUBIN,TOTAL 2.6 mg/dL (0.2-1.0); BUN - BLOOD UREA NITROGEN 18 mg/dL (6-20); CALCIUM 8.8 mg/dL (8.5-10.3); CARBON DIOXIDE - CO2 28 mmol/L (21-32); CHLORIDE 104 mmol/L (101-111); CHOL/HDL RATIO 5.1 (<5.0); CHOLESTEROL 230 mg/dL; CREATININE 1.1 mg/dL (0.6-1.2); GFR - MDRD 66 (>89); GLUCOSE 102 mg/dL (70-100); HDL CHOLESTEROL 45 mg/dL; LDL/HDL RATIO 3.7 (<3.6); POTASSIUM 3.5 mmol/L (3.5-5.0); SODIUM 139 mmol/L (135-145); VLDL CHOLESTEROL 19 mg/dL
[2017-02-03 12:51] LABS: TRIGLYCERIDES 97 mg/dL
== END 2017-02-03 08:01 | disposition home or self-care (01) ==
LOC: LAB.N 08:00
PROVIDERS: ATTEND Physician Assistant Medical
DX: E04.1 Nontoxic single thyroid nodule (principal); I10 Essential (primary) hypertension; J45.909 Unspecified asthma, uncomplicated; E78.5 Hyperlipidemia, unspecified; H81.10 Benign paroxysmal vertigo, unspecified ear
CPT/HCPCS: 36415; 80053; 80061; 84443; 85025

== ENCOUNTER 2017-02-08 12:59 | Outpatient (CLI) | payer MEDICARE, MEDICAID ==
--- NOTE | 2017-02-09 16:11 | Ultrasound Report ---
THYROID ULTRASOUND: 02/08/2017 HISTORY: Incidental finding of 12 mm nodule on right thyroid found during recent ER visit. COMPARISON: 01/20/2017 CT scan of the neck. TECHNIQUE: Real-time scanning by the occasional babysitter with saved static images reviewed. FINDINGS RIGHT LOBE: 5.2 x 2.3 x 2.0 cm, volume 12.5 mL. In the inferior pole of the right lobe of the thyroid is a round, hypoechoic nodule containing one punctate calcification. The nodule measures 1.2 x 1.1 x 0.9 cm and demonstrates peripheral vascularity with possible internal vascularity. LEFT LOBE: 5.0 x 1.7 x 1.1 cm. The left thyroid is normal in echotexture. THYROID ISTHMUS: 0.14 cm. No regional adenopathy is identified. IMPRESSION: HYPOECHOIC VASCULAR 1.2 X 1.1 X 0.9 CM RIGHT INFERIOR THYROID LOBE NODULE FOR WHICH THYROID FNA IS SUGGESTED. IF FNA IS NOT PERFORMED, THEN FOLLOWUP ULTRASOUND IN SIX MONTHS IS ADVISED. JOB #: [id number] EXT JOB #: [id number] YUVAL
== END 2017-02-08 13:00 | disposition home or self-care (01) ==
LOC: DI 12:59
PROVIDERS: ATTEND Physician Assistant Medical
DX: E04.1 Nontoxic single thyroid nodule (principal)
CPT/HCPCS: 76536

== ENCOUNTER 2017-03-02 15:55 | Emergency (ER) | payer MEDICARE, MEDICAID ==
[2017-03-02] MEDS ORDERED: LORazepam 0.5 MG TABLET PO STA (17:01)
[2017-03-02] MEDS ORDERED: MECLIZINE 12.5 MG TABLET PO STA ×2 (17:01→18:20)
[2017-03-02] MEDS ORDERED: ONDANSETRON ODT 4 MG TABLET TL STA (17:01)
--- NOTE | 2017-03-02 17:08 | ED Physician Documentation ---
History of Present Illness - Stated complaint Stated Complaint: DIZZINESS/NAUSEA - Chief complaint Chief Complaint: Neuro - History obtained from History obtained from: Patient, Family - History of Present Illness Timing: Today Pain level max: 0 Pain level now: 0 Improved by: remaining still. Worsened by: movement, turning his head - Additonal information Additional information: Patient states that he has vertigo. Has happened several times in the past. No recent illness. No trauma. No travel. No medications. Review of Systems Constitutional: denies: Fever, Chills Ears: denies: Ear pain Nose: denies: Rhinorrhea / runny nose, Congestion Throat: denies: Sore throat Cardiac: denies: Chest pain / pressure GI: denies: Nausea, Vomiting, Diarrhea Skin: denies: Rash Musculoskeletal: denies: Neck pain, Back pain Neurologic: denies: Focal weakness, Numbness, Confused, Altered mental status, Headache PD PAST MEDICAL HISTORY - Past Medical History Past Medical History: Yes Cardiovascular: Hypertension Respiratory: None Neuro: CVA Endocrine/Autoimmune: None GI: None : None HEENT: Chronic hearing loss Psych: None Musculoskeletal: None Derm: None - Past Surgical History Past Surgical History: Yes HEENT: Tonsil/Adenoidectomy Derm: Other - Present Medications Home Medications: Ambulatory Orders Medication Instructions Recorded Confirmed Meclizine [Antivert] 25 mg PO Q6H PRN #20 tablet 03/02/17 03/02/17 Ondansetron Odt [Zofran] 4 mg TL Q6H PRN #10 tablet 03/02/17 03/02/17 diazePAM [Valium] 5 mg PO TID PRN #10 tablet 03/02/17 - Allergies Allergies/Adverse Reactions: Allergies Allergy/AdvReac Type Severity Reaction Status Date / Time Penicillins Allergy swelling Verified 03/02/17 20:14 - Social History Does the pt smoke?: No Smoking Status: Never smoker Does the pt drink ETOH?: Yes Does the pt have substance abuse?: No - Immunizations Immunizations are current?: No Immunizations: TDAP current <10years - POLST Patient has POLST: No PD ED PE NORMAL - Vitals Vital signs reviewed: Yes - General General: Alert and oriented X 3, No acute distress, Well developed/nourished - HEENT HEENT: PERRL, EOMI, Ears normal, Moist mucous membranes, Pharynx benign - Neck Neck: Supple, no meningeal sign - Cardiac Cardiac: RRR - Respiratory Respiratory: No respiratory distress, Clear bilaterally - Abdomen Abdomen: Soft, Non tender, Non distended - Derm Derm: Warm and dry - Neuro Neuro: Alert and oriented X 3, nurse practitioner physicians assistant 2-12 intact, No motor deficit, No sensory deficit, Normal speech, Other (+ hallpike to the R) Eye Opening: Spontaneous Motor: Obeys Commands Verbal: Oriented GCS Score: 15 - Psych Psych: Normal mood, Normal affect Results - Vitals Vitals: Vital Signs - 24 hr 03/02/17 03/02/17 03/02/17 16:26 16:42 17:29 Temperature 36.1 C L 36.5 C Heart Rate 57 L 55 L 59 L Respiratory 16 18 18 Rate Blood Pressure 104/88 H 198/93 H 190/94 H O2 Saturation 100 100 100 03/02/17 18:35 Temperature 37.1 C Heart Rate 62 Respiratory 18 Rate Blood Pressure 195/98 H O2 Saturation 99 Oxygen O2 Source Room air - EKG (time done) 1610 Rate: Rate (enter#) (61) Rhythm: NSR [place]: Normal Intervals: Normal [place] QRS: Normal Ischemia: Normal ST segments Computer interpretation: Agree with computer PD MEDICAL DECISION MAKING - ED course Complexity details: re-evaluated patient, considered differential, d/w patient ED course: Patient is a 71-year-old male who presents to the emergency department with what appears to be BPPV. No evidence of central origination for his vertigo. No evidence of stroke. No evidence of tumor mass. Feels better after meclizine , Ativan and Zofran. Tolerating p.o. without difficulty and ambulating with a steady gait. We will have him follow-up with his doctor for further evaluation and care. Patient counseled regarding signs and symptoms for which I believe and urgent re-evaluation would be necessary. Patient with good understanding of and agreement to plan and is comfortable going home at this time This document was made in part using voice recognition software. While efforts are made to proofread this document, sound alike and grammatical errors may occur. Departure - Departure Disposition: 01 Home, Self Care Clinical Impression: Vertigo Condition: Good Instructions: ED Vertigo Unspecified Follow-Up: your,doctor in 1 week [Other] Prescriptions: Meclizine [Antivert] 25 mg PO Q6H PRN #20 tablet PRN Reason: Vertigo Ondansetron Odt [Zofran] 4 mg TL Q6H PRN #10 tablet PRN Reason: Nausea / Vomiting Comments: Return if you worsen. Do not drive or operate heavy machinery while you are having vertigo or on meclizine. Discharge Date/Time: 03/02/17 18:40
[2017-03-02 18:36] VITALS: BP 195/98
== END 2017-03-02 18:40 | disposition home or self-care (01) ==
LOC: ED 15:55
DX: R42 Dizziness and giddiness (principal); I10 Essential (primary) hypertension; Z86.73 Personal history of transient ischemic attack (TIA), and cerebral infarction without residual deficits
CPT/HCPCS: 93005; 99283; 99284; A9270; Q0162

== ENCOUNTER 2017-03-02 20:08 | Emergency (ER) | payer MEDICARE, MEDICAID ==
[2017-03-02] MEDS ORDERED: diazePAM 5 MG TABLET PO STA (20:48)
--- NOTE | 2017-03-02 21:54 | ED Physician Documentation ---
History of Present Illness - Stated complaint Stated Complaint: DIZZINESS/VOMITING - Chief complaint Chief Complaint: Neuro - History obtained from History obtained from: Patient (pt here for evaluation of vertigo. Pt was seen earlier today for the same symptoms and was given medications in the ER with reported improvementin the symptoms. he states that after he left his and him went to the store and he had a return of the symptoms. spinning snesation when his eyes are open and when he turns his head to the right. He states that he could not take his rx medications because he was vomiting.) Review of Systems Constitutional: denies: Fever, Chills Ears: denies: Loss of hearing, Tinnitus/ringing Nose: denies: Rhinorrhea / runny nose, Congestion, Sinus pressure / pain Throat: denies: Sore throat, Swollen tonsils Cardiac: denies: Chest pain / pressure, Palpitations Respiratory: denies: Dyspnea, Cough GI: reports: Nausea, Vomiting. denies: Constipation, Diarrhea : denies: Dysuria, Frequency Skin: denies: Rash, Lesions Musculoskeletal: denies: Neck pain, Back pain Neurologic: denies: Generalized weakness, Numbness, Difficulty speaking, Near syncope, Syncope, Seizure, Headache, Head injury PD PAST MEDICAL HISTORY - Past Medical History Cardiovascular: Hypertension Respiratory: None Neuro: CVA Endocrine/Autoimmune: None GI: None : None HEENT: Chronic hearing loss Psych: None Musculoskeletal: None Derm: None - Past Surgical History Past Surgical History: Yes HEENT: Tonsil/Adenoidectomy Derm: Other - Present Medications Home Medications: Ambulatory Orders Medication Instructions Recorded Confirmed Meclizine [Antivert] 25 mg PO Q6H PRN #20 tablet 03/02/17 03/02/17 Ondansetron Odt [Zofran] 4 mg TL Q6H PRN #10 tablet 03/02/17 03/02/17 diazePAM [Valium] 5 mg PO TID PRN #10 tablet 03/02/17 - Allergies Allergies/Adverse Reactions: Allergies Allergy/AdvReac Type Severity Reaction Status Date / Time Penicillins Allergy swelling Verified 03/02/17 20:14 - Social History Does the pt smoke?: No Smoking Status: Never smoker Does the pt drink ETOH?: Yes Does the pt have substance abuse?: No - Immunizations Immunizations are current?: No Immunizations: TDAP current <10years - POLST Patient has POLST: No PD ED PE NORMAL - Vitals Vital signs reviewed: Yes - General General: Alert and oriented X 3, No acute distress - HEENT HEENT: Atraumatic, PERRL, EOMI, Ears normal, Pharynx benign, Dentition benign - Cardiac Cardiac: RRR, No murmur - Respiratory Respiratory: No respiratory distress, Clear bilaterally - Abdomen Abdomen: Normal bowel sounds, Soft - Back Back: No CVA TTP - Derm Derm: Normal color, Warm and dry, No rash - Extremities Extremities: No deformity, No calf tenderness / cord - Neuro Neuro: Alert and oriented X 3, dragsaw operator 2-12 intact, No motor deficit, No sensory deficit, Normal speech Eye Opening: Spontaneous Motor: Obeys Commands Verbal: Oriented GCS Score: 15 - Psych Psych: Normal mood, Normal affect PD ED PE EXPANDED - Neuro Neuro: Alert and Oriented X 3, Normal motor, Normal Sensation, Normal Speech, CNII-XII intact, PERRL, Normal speech. No: Confused, Disoriented, CN deficit, Nystagmus, Aphasia, Dysarthria Results - Vitals Vitals: Vital Signs - 24 hr 03/02/17 03/02/17 20:10 21:15 Temperature 36.0 C L 36.6 C Heart Rate 67 56 L Respiratory 18 12 Rate Blood Pressure 186/100 H 193/100 H O2 Saturation 100 100 Oxygen O2 Source Nasal cannula Oxygen Flow Rate 1.5 - EKG (time done) 2033 Rate: Rate (enter#) Rhythm: Sinus bradycardia [place]: Normal Intervals: Normal [place], QRS normal. No: Prolonged QT QRS: Normal Ischemia: Normal ST segments PD MEDICAL DECISION MAKING - ED course Complexity details: reviewed old records, re-evaluated patient, considered differential, d/w patient, d/w family ED course: pt with resolution of his symptoms after the oral valium. We discussed his blood pressure and the need to follow up with his primary care provider. we discussed his symptoms today and the need to follow up with his primary doctor to discuss neurology follow up. He expressed understanding. he was given return precautions. Departure - Departure Disposition: 01 Home, Self Care Clinical Impression: Vertigo Condition: Good Instructions: ED Vertigo Unspecified Follow-Up: primary, care provider [Other] Prescriptions: diazePAM [Valium] 5 mg PO TID PRN #10 tablet PRN Reason: Vertigo Comments: Increase your fluid intake. Tal[place] to your primary care provider to discuss your blood pressure and your vertigo. No driving while you are taking the medications. Return to the ER for any new or worsening symptoms.
[2017-03-02 22:23] VITALS: BP 160/98
== END 2017-03-02 22:23 | disposition home or self-care (01) ==
LOC: ED 20:08
DX: R42 Dizziness and giddiness (principal); R94.31 Abnormal electrocardiogram [ECG] [EKG]; I10 Essential (primary) hypertension; Z86.73 Personal history of transient ischemic attack (TIA), and cerebral infarction without residual deficits; R11.0 Nausea
CPT/HCPCS: 93005; 99283; 99284; A9270; Q0162

== ENCOUNTER 2017-03-16 13:28 | Outpatient (CLI) | payer MEDICARE, MEDICAID ==
[2017-03-16 19:37] LABS: BILIRUBIN,DIRECT 0.3 mg/dL (0.1-0.5); BILIRUBIN,INDIRECT 1.9 mg/dL; BILIRUBIN,TOTAL 2.2 mg/dL (0.2-1.0)
== END 2017-03-16 13:29 | disposition home or self-care (01) ==
LOC: LAB.N 13:28
PROVIDERS: ATTEND Physician Assistant Medical
DX: E80.6 Other disorders of bilirubin metabolism (principal)
CPT/HCPCS: 36415; 82247; 82248

== ENCOUNTER 2017-03-22 09:17 | Outpatient (CLI) | payer MEDICARE, MEDICAID ==
[2017-03-22] MEDS ORDERED: BUFFERED LIDOCAINE 10 ML SYRINGE IU ONE (11:07)
--- NOTE | 2017-03-22 12:37 | Ultrasound Report ---
DATE OF SERVICE: 03/22/2017 ULTRASOUND-GUIDED FINE-NEEDLE ASPIRATION RIGHT THYROID NODULE: 03/22/2017 CLINICAL INDICATION: A 1 cm nodule in the inferior right lobe of the thyroid. FINDINGS: Following obtaining informed consent, the patient's right neck was prepped and draped in the usual sterile fashion. The skin and soft tissues were anesthetized with lidocaine. Under ultrasound guidance, four 22-gauge fine needle aspirations of the nodule in the lower pole of the right lobe were performed. The patient tolerated the procedure well. No immediate complications. Needle washings were submitted to pathology. IMPRESSION: Fine needle aspiration right thyroid nodule. Await pathology report. TD: 03/22/2017 13:36
== END 2017-03-22 09:18 | disposition home or self-care (01) ==
LOC: DI 09:17
PROVIDERS: ATTEND Surgery
DX: E04.1 Nontoxic single thyroid nodule (principal)
CPT/HCPCS: 10022; 76942; 88305; 88373

== ENCOUNTER 2017-09-29 08:41 | Outpatient (CLI) | payer MEDICARE, MEDICAID ==
--- NOTE | 2017-09-29 09:25 | XRAY Report ---
Procedure Date: 09/29/2017 Accession Number: [id number] / [id number] Procedure: XR - Hand 3 View RT CPT Code: FULL RESULT: EXAM: Hand 3 View RT DATE: 09/29/2017 8:53 AM CLINICAL HISTORY: PAIN IN RIGHT HAND COMPARISON: None. TECHNIQUE: 3 views. FINDINGS: Bones: Fracture of the distal first phalanx likely with intra-articular extension, subacute to chronic appearance. Joints: Mild degenerative changes. No subluxations. Soft Tissues: Calcific densities projecting over the distal metacarpals should be correlated 2 markers of inflammatory arthropathy. Please note that there are no erosive osseous changes. IMPRESSION: Fracture of the right first phalanx. Likely a chronic or subacute finding. Soft tissue calcifications near the carpometacarpal joints. RADIA
== END 2017-09-29 08:42 | disposition home or self-care (01) ==
LOC: DI 08:41
PROVIDERS: ATTEND Physician Assistant Medical
DX: M79.641 Pain in right hand (principal); S62.521A Displaced fracture of distal phalanx of right thumb, initial encounter for closed fracture

== ENCOUNTER 2017-11-14 14:58 | Emergency (ER) | payer MEDICARE, MEDICAID ==
--- NOTE | 2017-11-14 16:49 | ED Physician Documentation ---
PD HPI FOCAL NEURO - Stated complaint Stated Complaint: FACE NUMBNESS - Chief complaint Chief Complaint: Neuro - History obtained from History obtained from: Patient, Family - History of Present Illness Timing - onset: Today (72-year-old gentleman with history of stroke with left- sided deficits woke up this morning around 830 with symptoms. He had gone to bed at midnight. He notes today since waking up that he has right-sided tongue and facial numbness and right hand numbness which are all incomplete. There is no associated headache or weakness no other neurologic symptoms. He does have a history of hypertension and he is minimally if at all compliant with his blood pressure medicine although he did take it today as well as aspirin today.) Review of Systems Ten Systems: 10 systems reviewed and negative Constitutional: denies: Fever, Chills Cardiac: denies: Chest pain / pressure, Palpitations Respiratory: denies: Dyspnea, Cough GI: denies: Abdominal Pain PD PAST MEDICAL HISTORY - Past Medical History Cardiovascular: Hypertension Respiratory: None Endocrine/Autoimmune: None GI: None : None HEENT: Chronic hearing loss Psych: None Musculoskeletal: None Derm: None - Past Surgical History Past Surgical History: Yes HEENT: Tonsil/Adenoidectomy Derm: Other - Present Medications Home Medications: Ambulatory Orders Medication Instructions Recorded Confirmed Meclizine [Antivert] 25 mg PO Q6H PRN #20 tablet 03/02/17 03/02/17 Ondansetron Odt [Zofran] 4 mg TL Q6H PRN #10 tablet 03/02/17 03/02/17 - Allergies Allergies/Adverse Reactions: Allergies Allergy/AdvReac Type Severity Reaction Status Date / Time Penicillins Allergy swelling Verified 03/02/17 20:14 - Social History Does the pt smoke?: No Smoking Status: Never smoker Does the pt drink ETOH?: Yes Does the pt have substance abuse?: No - Immunizations Immunizations are current?: No Immunizations: TDAP current <10years - POLST Patient has POLST: No PD ED PE NORMAL - Vitals Vital signs reviewed: Yes - General General: Alert and oriented X 3, No acute distress - HEENT HEENT: PERRL, EOMI - Neck Neck: Supple, no meningeal sign, No bony TTP, No bruit - Cardiac Cardiac: RRR, No murmur - Respiratory Respiratory: No respiratory distress, Clear bilaterally - Abdomen Abdomen: Non tender - Neuro Neuro: Alert and oriented X 3 - Psych Psych: Normal mood, Normal affect NIHSS - Time Time: 16:40 - Level of Consciousness Level of consciousness: (0) Alert, Keenly responsive LOC Questions: (0) Answers both Q's correct LOC Commands: (0) Performs both correctly - Gaze Best Gaze: (0) Normal - Visual Visual: (0) No loss - Facial Palsy Facial Palsy: (0) Normal, symmetrical movement - Motor Arms (both separate) Motor Arm (right): (0) No drift Motor Arm (left): (0) No drift - Motor Legs (both separate) Motor Leg (right): (0) No drift Motor Leg (left): (0) No drift - Limb Ataxia Limb Ataxia: (0) Absent - Sensory Sensory: (0) Normal - Best Language Best Language: (0) No aphasia - Dysarthria Dysarthria: (0) Normal - Extinction and Inattention (formally neg Extinction and inattention: (0) No abnormality - Total Score/Results Total Score/Result: 0 Results - Vitals Vitals: Vital Signs - 24 hr 11/14/17 11/14/17 15:02 16:50 Temperature 36.9 C Heart Rate 71 60 Respiratory 16 16 Rate Blood Pressure 162/98 H 190/98 H O2 Saturation 98 100 Oxygen O2 Source Room air - Labs Labs: Laboratory Tests 11/14/17 11/14/17 11/14/17 16:52 16:52 16:52 WBC 5.9 RBC 5.01 Hgb 15.2 Hct 42.4 MCV 84.8 MCH 30.3 MCHC 35.7 RDW 14.4 Plt Count 191 MPV 7.4 Neut # (Auto) 3.8 Lymph # (Auto) 1.6 [place] # (Auto) 0.3 Eos # (Auto) 0.1 Baso # (Auto) 0.1 Absolute Nucleated RBC 0.01 Nucleated RBC % 0.1 PT 11.8 INR 1.0 Sodium 138 Potassium 3.5 Chloride 103 Carbon Dioxide 28 Anion Gap 7.0 BUN 13 Creatinine 1.1 Estimated GFR (MDRD) 66 L Glucose 98 Calcium 8.7 Total Bilirubin 1.5 H AST 22 ALT 17 Alkaline Phosphatase 61 Total Protein 6.9 Albumin 4.3 Globulin 2.6 Albumin/Globulin Ratio 1.7 Lipase 28 - Rads (name of study) Carotid dopplers Radiology: EMP read contemporaneously (no stensosis) CT Head Radiology: EMP read contemporaneously (White matter disease with lacunar infarct.) PD MEDICAL DECISION MAKING - ED course ED course: 72-year-old gentleman who probably had a very small stroke last night with no findings on the NIH stroke scale and clearly not a TPA candidate due to time course. He understands the importance of compliance with his blood pressure medication going forward. - Sepsis Event Vital Signs: Vital Signs - 24 hr 11/14/17 11/14/17 15:02 16:50 Temperature 36.9 C Heart Rate 71 60 Respiratory 16 16 Rate Blood Pressure 162/98 H 190/98 H O2 Saturation 98 100 Oxygen O2 Source Room air Departure - Departure Disposition: 01 Home, Self Care Clinical Impression: Cerebrovascular accident (CVA) Qualifiers: CVA mechanism: unspecified Qualified Code(s): I63.9 - Cerebral infarction, unspecified Condition: Good Record reviewed to determine appropriate education?: Yes Instructions: ED Stroke Completed Comments: It is imperative to take your blood pressure medications as prescribed. Also a baby aspirin a day. Follow-up with your doctor tomorrow or the next day for recheck. Return for new or worsening symptoms.
[2017-11-14 16:59] LABS: BASOPHILS # (AUTO) 0.1 10^3/uL (0.0-0.1); EOSINOPHILS # (AUTO) 0.1 10^3/uL (0.0-0.7); EOSINOPHILS % (AUTO) 1.2 %; HGB - HEMOGLOBIN 15.2 g/dL (14.0-18.0); LYMPHOCYTES # (AUTO) 1.6 10^3/uL (1.5-3.5); LYMPHOCYTES % (AUTO) 27.3 %; MEAN CORPUSCULAR HEMOGLOBIN 30.3 pg (27.0-31.0); MEAN CORPUSCULAR HGB CONC 35.7 g/dL (32.0-36.0); MEAN CORPUSCULAR VOLUME 84.8 fL (80.0-94.0); MEAN PLATELET VOLUME 7.4 fL (7.4-11.4); MONOCYTES # (AUTO) 0.3 10^3/uL (0.0-1.0); MONOCYTES % (AUTO) 5.3 %; NEUTROPHILS # (AUTO) 3.8 10^3/uL (1.5-6.6); NEUTROPHILS % (AUTO) 65.2 %; PLT - PLATELET COUNT 191 10^3/uL (130-450); RED BLOOD COUNT 5.01 10^6/uL (4.70-6.10); RED CELL DISTRIBUTION WIDTH 14.4 % (12.0-15.0); WHITE BLOOD COUNT 5.9 x10^3/uL (4.8-10.8)
[2017-11-14 17:04] LABS: PT - PROTHROMBIN TIME 11.8 secs (9.9-12.6)
[2017-11-14 17:19] LABS: ALBUMIN 4.3 g/dL (3.2-5.5); ALBUMIN/GLOBULIN RATIO 1.7 (1.0-2.2); BILIRUBIN,TOTAL 1.5 mg/dL (0.2-1.0); CALCIUM 8.7 mg/dL (8.5-10.3); CREATININE 1.1 mg/dL (0.6-1.2); TOTAL PROTEIN 6.9 g/dL (6.7-8.2)
--- NOTE | 2017-11-14 18:10 | Ultrasound Report ---
Reason: CVA with R side sx Procedure Date: 11/14/2017 Accession Number: [id number] / [id number] Procedure: US - Carotid Doppler Complete CPT Code: FULL RESULT: EXAM: BILATERAL CAROTID AND VERTEBRAL ARTERY DUPLEX DOPPLER ULTRASOUND: EXAM DATE: 11/14/2017 06:01 PM CLINICAL HISTORY: CVA with right-sided symptoms. COMPARISON: None. TECHNIQUE: Grayscale imaging, color Doppler, and duplex spectral Doppler were used to evaluate the carotid and vertebral arteries bilaterally. Static images were obtained. FINDINGS: No significant plaque is identified in the right or left common or internal carotid arteries. Normal antegrade flow is present in bilateral vertebral arteries. VELOCITIES (cm/sec): Right CCA mid: PSV 66 cm/sec CCA dist: PSV 71 cm/sec ICA prox: PSV 50 cm/sec, EDV 16 cm/sec ICA mid: PSV 54 cm/sec, EDV 13 cm/sec ICA dist: PSV 53 cm/sec, EDV 20 cm/sec ECA: PSV 80 cm/sec Vert: PSV 30 cm/sec ICA/CCA: 0.76 Left CCA mid: PSV 70 cm/sec CCA dist: PSV 53 cm/sec ICA prox: PSV 55 cm/sec, EDV 17 cm/sec ICA mid: PSV 44 cm/sec, EDV 13 cm/sec ICA dist: PSV 45 cm/sec, EDV 21 cm/sec ECA: PSV 91 cm/sec Vert: PSV 34 cm/sec ICA/CCA: 0.78 IMPRESSION: No hemodynamically significant stenoses in the bilateral internal carotid arteries. Validated velocity measurements with angiographic measurements and velocity criteria are extrapolated from diameter data as defined by the Society of Radiologists in Ultrasound Consensus Conference Radiology 2003; 229;340-346. RADIA
--- NOTE | 2017-11-14 18:40 | CT Report ---
Reason: CVA with R side sx Procedure Date: 11/14/2017 Accession Number: [id number] / [id number] Procedure: CT - Head W/O CPT Code: FULL RESULT: EXAM: CT HEAD EXAM DATE: 11/14/2017 06:07 PM. CLINICAL HISTORY: CVA with R side sx. COMPARISON: HEAD ANGIO 01/20/2017. 08/20/2016 TECHNIQUE: Multiaxial CT images were obtained from the foramen magnum to the vertex. Reformats: Sagittal and coronal. IV contrast: None. In accordance with CT protocol optimization, one or more of the following dose reduction techniques were utilized for this exam: automated exposure control, adjustment of mA and/or KV based on patient size, or use of iterative reconstructive technique. FINDINGS: Parenchyma: There is mild nonfocal periventricular white matter hypodensity. There is hypodensity in the right thalamus. Negative for intracranial acute hemorrhage. No midline shift or mass-effect. Extraaxial Spaces: There is no abnormal subdural or epidural fluid collection. No subdural or epidural collections identified. Ventricles: Normal in size and position. Sinuses and Orbits: Imaged paranasal sinuses, orbits, and mastoids show no significant abnormality. Bones: No evidence of fracture or calvarial defect. Other: None. IMPRESSION: 1. Generalized white matter disease with right thalamic hypodensity. 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 2. No acute hemorrhage, localizing edema, or mass-effect. RADIA
[2017-11-14 19:08] VITALS: BP 176/108
== END 2017-11-14 18:54 | disposition home or self-care (01) ==
LOC: ED 14:58
DX: I63.9 Cerebral infarction, unspecified (principal); R90.82 White matter disease, unspecified; I10 Essential (primary) hypertension; I69.30 Unspecified sequelae of cerebral infarction; Z91.128 Patient's intentional underdosing of medication regimen for other reason
CPT/HCPCS: 36415; 70450; 80053; 83690; 85025; 85610; 93005; 93880; 99282; 99284

== ENCOUNTER 2018-04-21 15:05 | Outpatient (CLI) | payer MEDICARE, MEDICAID ==
--- NOTE | 2018-04-22 14:44 | Ultrasound Report ---
Reason: THROID NODULE,RIGHT Procedure Date: 04/21/2018 Accession Number: [id number] / [id number] Procedure: US - Head or Neck Soft Tissue CPT Code: FULL RESULT: EXAM: THYROID ULTRASOUND EXAM DATE: 04/21/2018 03:31 PM. CLINICAL HISTORY: Thyroid nodule,right. COMPARISON: HEAD OR NECK SOFT TISSUE 02/08/2017 1:14 PM FINE NEEDLE ASPIRATION 03/22/2017 9:27 AM. TECHNIQUE: Real time sonographic imaging of the thyroid was performed by the member of congress. Multiple artist representative static images were saved for review. FINDINGS: THYROID GLAND: Right Lobe: 4.9 x 2.3 x 2.0 cm, volume 11.7 cc. Normal background echotexture. Right Lobe Nodules: In the inferior pole of the right lobe of the thyroid, there is an ovoid hypoechoic well-circumscribed nodule measuring 1.2 x 0.9 x 1.0 cm (previously 1.2 x 1.1 x 0.9 cm). The previously seen calcification is not well visualized on the current exam. There is mild peripheral vascular flow. Left Lobe: 4.1 x 1.3 x 1.1 cm, volume 3.0 cc. Normal background echotexture. Left Lobe Nodules: None. Isthmus: 0.3 cm AP. Isthmic Nodules: None. LYMPH NODES: No adenopathy demonstrated in the central or lateral compartment. OTHER: None. IMPRESSION: 1. Unchanged size and appearance of hypoechoic ovoid nodule in the right lobe of the thyroid. Ultrasound characteristics are of intermediate suspicion. Recommend correlation with prior FNA biopsy results. Consider repeat ultrasound in 12-24 months. 2. Otherwise unremarkable thyroid ultrasound. No new thyroid nodule identified. Management recommendations are based on 2015 [place] [employer] Management Guidelines for Adult Patients with Thyroid Nodules and Differentiated Thyroid Cancer. RADIA
== END 2018-04-21 15:06 | disposition home or self-care (01) ==
LOC: DI 15:05
PROVIDERS: ATTEND Surgery
DX: E04.1 Nontoxic single thyroid nodule (principal)
CPT/HCPCS: 76536

== ENCOUNTER 2018-04-24 14:04 | Emergency (ER) | payer MEDICARE, MEDICAID ==
--- NOTE | 2018-04-24 15:42 | XRAY Report ---
Reason: chest pain Procedure Date: 04/24/2018 Accession Number: [id number] / [id number] Procedure: XR - Chest 2 View X-Ray CPT Code: 58288 FULL RESULT: EXAM: CHEST RADIOGRAPHY EXAM DATE: 04/24/2018 03:32 PM. CLINICAL HISTORY: Chest pain. COMPARISON: 01/20/2017 TECHNIQUE: 2 views. FINDINGS: Lungs/Pleura: No focal opacities evident. No pleural effusion. No pneumothorax. Normal volumes. Mediastinum: Heart and mediastinal contours are unremarkable. Other: Degenerative change in the spine. No acute findings compared with 2017. IMPRESSION: Clear lungs. No acute findings. RADIA
[2018-04-24 16:00] LABS: BASOPHILS # (AUTO) 0.1 10^3/uL (0.0-0.1); BASOPHILS % (AUTO) 0.9 %; EOSINOPHILS # (AUTO) 0.1 10^3/uL (0.0-0.7); HGB - HEMOGLOBIN 14.9 g/dL (14.0-18.0); LYMPHOCYTES # (AUTO) 1.1 10^3/uL (1.5-3.5); LYMPHOCYTES % (AUTO) 12.2 %; MEAN CORPUSCULAR HEMOGLOBIN 30.1 pg (27.0-31.0); MEAN CORPUSCULAR HGB CONC 35.2 g/dL (32.0-36.0); MEAN CORPUSCULAR VOLUME 85.4 fL (80.0-94.0); MEAN PLATELET VOLUME 7.6 fL (7.4-11.4); MONOCYTES # (AUTO) 0.4 10^3/uL (0.0-1.0); MONOCYTES % (AUTO) 4.5 %; NEUTROPHILS # (AUTO) 7.5 10^3/uL (1.5-6.6); NEUTROPHILS % (AUTO) 81.4 %; PLT - PLATELET COUNT 195 10^3/uL (130-450); RED BLOOD COUNT 4.97 10^6/uL (4.70-6.10); RED CELL DISTRIBUTION WIDTH 13.7 % (12.0-15.0); WHITE BLOOD COUNT 9.2 x10^3/uL (4.8-10.8)
[2018-04-24 16:09] LABS: ALBUMIN 4.3 g/dL (3.2-5.5); ALBUMIN/GLOBULIN RATIO 1.4 (1.0-2.2); BILIRUBIN,TOTAL 2.1 mg/dL (0.2-1.0); CALCIUM 8.8 mg/dL (8.5-10.3); TOTAL PROTEIN 7.4 g/dL (6.7-8.2)
[2018-04-24 17:15] VITALS: BP 184/85
[2018-04-24] MEDS ORDERED: AZITHROMYCIN 250 MG TABLET PO STA (17:18)
[2018-04-24] MEDS ORDERED: BENZONATATE 100 MG CAPSULE PO STA (17:18)
[2018-04-24] MEDS ORDERED: HYDROcod/ACETAM 5/325 MG TABLET PO STA (17:18)
--- NOTE | 2018-04-24 17:21 | ED Physician Documentation ---
PD HPI URI - Stated complaint Stated Complaint: R EAR/CHEST/THROAT PX - Chief complaint Chief Complaint: Heent - History obtained from History obtained from: Patient - History of Present Illness Timing - onset: Other (He is been sick with cough congestion and sore throat for the better part of 2 weeks. He saw his physician was diagnosed with viral illness. As of today he has severe right ear pain with muffled hearing. No fevers.) Recently seen: Other (He has not been taking his blood pressure medicines for the last 5 days because he feels sick.) Review of Systems Constitutional: denies: Fever Ears: reports: Loss of hearing, Ear pain. denies: Drainage/discharge Nose: reports: Rhinorrhea / runny nose, Congestion Throat: reports: Sore throat Respiratory: reports: Cough. denies: Dyspnea PD PAST MEDICAL HISTORY - Past Medical History Cardiovascular: Hypertension Respiratory: None Neuro: CVA, TIA Endocrine/Autoimmune: None GI: None : None HEENT: Chronic hearing loss Psych: None Musculoskeletal: None Derm: None - Past Surgical History Past Surgical History: Yes HEENT: Tonsil/Adenoidectomy Derm: Other - Present Medications Home Medications: Ambulatory Orders Medication Instructions Recorded Confirmed Meclizine [Antivert] 25 mg PO Q6H PRN #20 tablet 03/02/17 03/02/17 Ondansetron Odt [Zofran] 4 mg TL Q6H PRN #10 tablet 03/02/17 03/02/17 Azithromycin 1 tab PO DAILY #4 tablet 04/24/18 Benzonatate [Tessalon Perle] 100 - 200 mg PO TID PRN #30 capsule 04/24/18 Hydrocodone/Acetaminophen 1 - 2 each PO Q6H PRN #10 tablet 04/24/18 [Hydrocodon-Acetaminophen 5-325] - Allergies Allergies/Adverse Reactions: Allergies Allergy/AdvReac Type Severity Reaction Status Date / Time Penicillins Allergy swelling Verified 04/24/18 14:36 - Social History Does the pt smoke?: No Smoking Status: Never smoker Does the pt drink ETOH?: Yes Does the pt have substance abuse?: No - Immunizations Immunizations are current?: No Immunizations: TDAP current <10years - POLST Patient has POLST: No PD ED PE NORMAL - Vitals Vital signs reviewed: Yes - General General: Alert and oriented X 3, No acute distress - HEENT HEENT: Pharynx benign, Other (ROM) - Neck Neck: Supple, no meningeal sign, No bony TTP - Cardiac Cardiac: RRR, No murmur - Respiratory Respiratory: No respiratory distress, Clear bilaterally - Abdomen Abdomen: Non tender - Derm Derm: No rash - Neuro Neuro: Alert and oriented X 3, Normal speech Results - Vitals Vitals: Vital Signs - 24 hr 04/24/18 04/24/18 14:33 17:14 Temperature 37.2 C 37.1 C Heart Rate 64 76 Respiratory 18 16 Rate Blood Pressure 212/90 H 184/85 H O2 Saturation 100 99 Oxygen O2 Source Room air - EKG (time done) 1444 Rate: Rate (enter#) (61) Rhythm: NSR Fitz[place]: Normal Intervals: Normal VT QRS: Normal Ischemia: Normal ST segments Computer interpretation: Agree with computer - Labs Labs: Laboratory Tests 04/24/18 04/24/18 04/24/18 15:52 15:52 15:52 WBC 9.2 RBC 4.97 Hgb 14.9 Hct 42.4 MCV 85.4 MCH 30.1 MCHC 35.2 RDW 13.7 Plt Count 195 MPV 7.6 Neut # (Auto) 7.5 H Lymph # (Auto) 1.1 L [place] # (Auto) 0.4 Eos # (Auto) 0.1 Baso # (Auto) 0.1 Absolute Nucleated RBC 0.00 Nucleated RBC % 0.1 Sodium 137 Potassium 3.2 L Chloride 98 L Carbon Dioxide 30 Anion Gap 9.0 BUN 13 Creatinine 1.0 Estimated GFR (MDRD) 73 L Glucose 96 Calcium 8.8 Total Bilirubin 2.1 H AST 20 ALT 13 Alkaline Phosphatase 76 Troponin I < 0.04 Total Protein 7.4 Albumin 4.3 Globulin 3.1 Albumin/Globulin Ratio 1.4 Lipase 26 PD MEDICAL DECISION MAKING - ED course ED course: 73-year-old gentleman with URI, now with right ear pain and right otitis media which is treated with Zithromax noted penicillin allergy. Departure - Departure Disposition: 01 Home, Self Care Clinical Impression: Hypertension Qualifiers: Hypertension type: essential hypertension Qualified Code(s): I10 - Essential (primary) hypertension ROM (right otitis media) Qualifiers: Otitis media type: suppurative Chronicity: acute Recurrence: non-recurrent Spontaneous tympanic membrane rupture: without spontaneous rupture Qualified Code(s): H66.001 - Acute suppurative otitis media without spontaneous rupture of ear drum, right ear Condition: Good Record reviewed to determine appropriate education?: Yes Instructions: ED Otitis Media Acute Adult Prescriptions: Azithromycin 1 tab PO DAILY #4 tablet Benzonatate [Tessalon Perle] 100 - 200 mg PO TID PRN #30 capsule PRN Reason: Cough Hydrocodone/Acetaminophen [Hydrocodon-Acetaminophen 5-325] 1 - 2 each PO Q6H PRN #10 tablet PRN Reason: pain Comments: It is important to take your blood pressure medicines even when you are sick. Return for new or worsening symptoms. Follow-up with your doctor in a week for recheck.
== END 2018-04-24 18:06 | disposition home or self-care (01) ==
LOC: ED 14:04
DX: H66.001 Acute suppurative otitis media without spontaneous rupture of ear drum, right ear (principal); J06.9 Acute upper respiratory infection, unspecified; I10 Essential (primary) hypertension; T46.5X6A Underdosing of other antihypertensive drugs, initial encounter; Z91.128 Patient's intentional underdosing of medication regimen for other reason; Z88.0 Allergy status to penicillin
CPT/HCPCS: 36415; 71046; 80053; 83690; 84484; 85025; 93005; 99283; A9270

== ENCOUNTER 2018-04-29 15:39 | Emergency (ER) | payer MEDICARE, MEDICAID ==
[2018-04-29] MEDS ORDERED: diazePAM 5 MG TABLET PO STA (17:19)
--- NOTE | 2018-04-29 17:24 | ED Physician Documentation ---
History of Present Illness - Stated complaint Stated Complaint: DIZZY/EAR PX - Chief complaint Chief Complaint: Heent - History obtained from History obtained from: Patient - History of Present Illness Timing: How many weeks ago (1) Pain level max: 0 Pain level now: 0 - Additonal information Additional information: 73-year-old male with a long-standing history of vertigo. Recently treated for right acute otitis media. Finished antibiotics yesterday. Feeling dizzy today. Took meclizine without relief. No headache. No head injury. This is similar to his prior symptoms. Worse with movement and better with sitting still Review of Systems Constitutional: denies: Fever, Chills Cardiac: denies: Chest pain / pressure Respiratory: denies: Cough GI: denies: Abdominal Pain, Nausea, Vomiting, Diarrhea PD PAST MEDICAL HISTORY - Past Medical History Cardiovascular: Hypertension Respiratory: None Neuro: CVA, TIA Endocrine/Autoimmune: None GI: None : None HEENT: Chronic hearing loss Psych: None Musculoskeletal: None Derm: None - Past Surgical History Past Surgical History: Yes HEENT: Tonsil/Adenoidectomy Derm: Other - Present Medications Home Medications: Ambulatory Orders Medication Instructions Recorded Confirmed Meclizine [Antivert] 25 mg PO Q6H PRN #20 tablet 03/02/17 03/02/17 Ondansetron Odt [Zofran] 4 mg TL Q6H PRN #10 tablet 03/02/17 03/02/17 Azithromycin 1 tab PO DAILY #4 tablet 04/24/18 Benzonatate [Tessalon Perle] 100 - 200 mg PO TID PRN #30 capsule 04/24/18 Hydrocodone/Acetaminophen 1 - 2 each PO Q6H PRN #10 tablet 04/24/18 [Hydrocodon-Acetaminophen 5-325] diazePAM [Valium] 5 mg PO TID PRN #10 tablet 04/29/18 - Allergies Allergies/Adverse Reactions: Allergies Allergy/AdvReac Type Severity Reaction Status Date / Time Penicillins Allergy swelling Verified 04/24/18 14:36 - Social History Does the pt smoke?: No Smoking Status: Never smoker Does the pt drink ETOH?: Yes Does the pt have substance abuse?: No - Immunizations Immunizations are current?: No Immunizations: TDAP current <10years - POLST Patient has POLST: No PD ED PE NORMAL - Vitals Vital signs reviewed: Yes - General General: Alert and oriented X 3, No acute distress - HEENT HEENT: PERRL, Ears normal, Moist mucous membranes, Pharynx benign - Neck Neck: Supple, no meningeal sign - Cardiac Cardiac: RRR - Respiratory Respiratory: No respiratory distress, Clear bilaterally - Abdomen Abdomen: Soft, Non tender, Non distended - Derm Derm: Warm and dry - Extremities Extremities: Normal ROM s pain - Neuro Neuro: Alert and oriented X 3, 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 Has received Valium for this in the past. Will prescribe a small amount of Valium for him and follow-up with his doctor. No evidence of intracranial hemorrhage, subarachnoid, tumor. Patient counseled regarding signs and symptoms for which I believe and urgent re- evaluation would be necessary. Patient with good understanding of and agreement to plan and is comfortable going home at this time This document was made in part using voice recognition software. While efforts are made to proofread this document, sound alike and grammatical errors may occur. Departure - Departure Disposition: 01 Home, Self Care Clinical Impression: Vertigo Condition: Good Instructions: ED Vertigo Unspecified Follow-Up: Ariel Ledesma PA-C [Primary Care Provider] - Within 1 week Prescriptions: diazePAM [Valium] 5 mg PO TID PRN #10 tablet PRN Reason: dizziness Comments: Do not drive or operate while taking the Valium. Return if you worsen
[2018-04-29 18:39] VITALS: BP 146/72
== END 2018-04-29 17:55 | disposition home or self-care (01) ==
LOC: ED 15:39
DX: R42 Dizziness and giddiness (principal); I10 Essential (primary) hypertension; Z86.73 Personal history of transient ischemic attack (TIA), and cerebral infarction without residual deficits
CPT/HCPCS: 99283; A9270

== ENCOUNTER 2018-06-12 08:00 | Outpatient (CLI) | payer MEDICARE, MEDICAID ==
[2018-06-12 13:19] LABS: CREATININE 1.2 mg/dL (0.6-1.2)
== END 2018-06-12 23:59 | disposition home or self-care (01) ==
LOC: LAB.N 08:00
PROVIDERS: ATTEND Internal Medicine Cardiovascular Disease
DX: E87.6 Hypokalemia (principal)
CPT/HCPCS: 36415; 80048

== ENCOUNTER 2018-06-30 09:02 | Outpatient (CLI) | payer MEDICARE, MEDICAID ==
[2018-06-30 12:57] LABS: CALCIUM 9.4 mg/dL (8.5-10.3); CREATININE 1.1 mg/dL (0.6-1.2)
== END 2018-06-30 23:59 | disposition home or self-care (01) ==
LOC: LAB.N 09:02
PROVIDERS: ATTEND Internal Medicine Cardiovascular Disease
DX: E87.6 Hypokalemia (principal)
CPT/HCPCS: 36415; 80048

== ENCOUNTER 2018-07-18 08:00 | Outpatient (CLI) | payer MEDICARE, MEDICAID ==
[2018-07-18 12:55] LABS: CALCIUM 9.2 mg/dL (8.5-10.3)
== END 2018-07-18 23:59 | disposition home or self-care (01) ==
LOC: LAB.N 08:00
PROVIDERS: ATTEND Nurse Practitioner
DX: E87.6 Hypokalemia (principal)
CPT/HCPCS: 36415; 80048

== ENCOUNTER 2018-12-18 08:00 | Outpatient (CLI) | payer MEDICARE, MEDICAID ==
[2018-12-18 19:25] LABS: CALCIUM 8.9 mg/dL (8.5-10.3)
== END 2018-12-18 23:59 | disposition home or self-care (01) ==
LOC: LAB.N 08:00
PROVIDERS: ATTEND Internal Medicine Cardiovascular Disease
DX: I10 Essential (primary) hypertension (principal)
CPT/HCPCS: 36415; 80048

== ENCOUNTER 2019-01-12 10:17 | Outpatient (CLI) | payer MEDICARE, MEDICAID ==
[2019-01-12 13:48] LABS: BASOPHILS % (AUTO) 0.5 %; EOSINOPHILS % (AUTO) 0.7 %; HGB - HEMOGLOBIN 14.5 g/dL (14.0-18.0); LYMPHOCYTES # (AUTO) 1.2 10^3/uL (1.5-3.5); LYMPHOCYTES % (AUTO) 20.2 %; MEAN CORPUSCULAR HEMOGLOBIN 30.5 pg (27.0-31.0); MEAN CORPUSCULAR HGB CONC 34.4 g/dL (32.0-36.0); MEAN CORPUSCULAR VOLUME 88.7 fL (80.0-94.0); MEAN PLATELET VOLUME 10.6 fL (7.4-11.4); MONOCYTES # (AUTO) 0.3 10^3/uL (0.0-1.0); MONOCYTES % (AUTO) 4.6 %; NEUTROPHILS # (AUTO) 4.5 10^3/uL (1.5-6.6); NEUTROPHILS % (AUTO) 73.8 %; PLT - PLATELET COUNT 192 10^3/uL (130-450); RED BLOOD COUNT 4.76 10^6/uL (4.70-6.10); RED CELL DISTRIBUTION WIDTH 13.3 % (12.0-15.0); WHITE BLOOD COUNT 6.1 x10^3/uL (4.8-10.8)
[2019-01-12 14:23] LABS: BUN - BLOOD UREA NITROGEN 16 mg/dL (6-20); CALCIUM 9.5 mg/dL (8.5-10.3); CARBON DIOXIDE - CO2 33 mmol/L (21-32); CHLORIDE 102 mmol/L (101-111); CHOL/HDL RATIO 3.2 (<5.0); CHOLESTEROL 137 mg/dL; GFR - MDRD 73 (>89); GLUCOSE 104 mg/dL (70-100); HDL CHOLESTEROL 43 mg/dL; LDL CHOLESTEROL,CALCULATED 71 mg/dL; LDL/HDL RATIO 1.7 (<3.6); SODIUM 142 mmol/L (135-145); VLDL CHOLESTEROL 23 mg/dL
== END 2019-01-12 23:59 | disposition home or self-care (01) ==
LOC: LAB.N 10:17
PROVIDERS: ATTEND Physician Assistant Medical
DX: E78.5 Hyperlipidemia, unspecified (principal); I10 Essential (primary) hypertension
CPT/HCPCS: 36415; 80048; 80061; 83721; 85025

== ENCOUNTER 2019-05-16 13:00 | Outpatient (CLI) | payer MEDICARE, MEDICAID | END 2019-05-16 23:59 | disposition home or self-care (01) | LOC: LAB.N 13:00 | PROVIDERS: ATTEND Physician Assistant Medical | DX: E04.1 Nontoxic single thyroid nodule (principal) | CPT/HCPCS: 36415; 84443 ==

== ENCOUNTER 2019-11-07 08:00 | Outpatient (CLI) | payer MEDICARE, MEDICAID ==
[2019-11-07 18:37] LABS: ALBUMIN 4.6 g/dL (3.2-5.5); ALBUMIN/GLOBULIN RATIO 1.6 (1.0-2.2); ALKALINE PHOSPHATASE 61 IU/L (42-121); ALT ALANINE AMINOTRANSFERASE 20 IU/L (10-60); AST ASPARTATE AMINOTRANSFERASE 19 IU/L (10-42); BILIRUBIN,TOTAL 2.3 mg/dL (0.2-1.0); BUN - BLOOD UREA NITROGEN 25 mg/dL (6-20); CALCIUM 9.6 mg/dL (8.5-10.3); CARBON DIOXIDE - CO2 31 mmol/L (21-32); CHLORIDE 104 mmol/L (101-111); CHOL/HDL RATIO 3.5 (<5.0); CHOLESTEROL 177 mg/dL; CREATININE 1.1 mg/dL (0.6-1.2); GLUCOSE 97 mg/dL (70-100); HDL CHOLESTEROL 50 mg/dL; LDL CHOLESTEROL,CALCULATED 108 mg/dL; LDL/HDL RATIO 2.2 (<3.6); SODIUM 142 mmol/L (135-145); TOTAL PROTEIN 7.5 g/dL (6.7-8.2); VLDL CHOLESTEROL 19 mg/dL
== END 2019-11-07 23:59 | disposition home or self-care (01) ==
LOC: LAB.WCP 08:00
PROVIDERS: ATTEND Internal Medicine Cardiovascular Disease
DX: I11.9 Hypertensive heart disease without heart failure (principal)
CPT/HCPCS: 36415; 80053; 80061; 82085; 82088; 83721

== ENCOUNTER 2019-11-21 08:00 | Outpatient (CLI) | payer MEDICARE, MEDICAID ==
[2019-11-21 11:48] LABS: CALCIUM 9.4 mg/dL (8.5-10.3); CREATININE 1.4 mg/dL (0.6-1.2)
== END 2019-11-21 23:59 | disposition home or self-care (01) ==
LOC: LAB.WCP 08:00
PROVIDERS: ATTEND Internal Medicine Cardiovascular Disease
DX: I10 Essential (primary) hypertension (principal)
CPT/HCPCS: 36415; 80048

== ENCOUNTER 2020-02-18 08:00 | Outpatient (CLI) | payer MEDICARE, MEDICAID ==
[2020-02-18 12:35] LABS: BASOPHILS # (AUTO) 0.1 10^3/uL (0.0-0.1); BASOPHILS % (AUTO) 0.6 %; EOSINOPHILS # (AUTO) 0.1 10^3/uL (0.0-0.7); EOSINOPHILS % (AUTO) 1.2 %; LYMPHOCYTES # (AUTO) 1.8 10^3/uL (1.5-3.5); MEAN CORPUSCULAR HEMOGLOBIN 30.7 pg (27.0-31.0); MEAN CORPUSCULAR HGB CONC 34.4 g/dL (32.0-36.0); MEAN CORPUSCULAR VOLUME 89.3 fL (80.0-94.0); MEAN PLATELET VOLUME 10.5 fL (7.4-11.4); MONOCYTES # (AUTO) 0.5 10^3/uL (0.0-1.0); MONOCYTES % (AUTO) 5.8 %; NEUTROPHILS # (AUTO) 5.3 10^3/uL (1.5-6.6); NEUTROPHILS % (AUTO) 68.4 %; PLT - PLATELET COUNT 196 10^3/uL (130-450); RED BLOOD COUNT 4.88 10^6/uL (4.70-6.10); RED CELL DISTRIBUTION WIDTH 12.9 % (12.0-15.0); WHITE BLOOD COUNT 7.7 x10^3/uL (4.8-10.8)
[2020-02-18 13:33] LABS: ALBUMIN 4.3 g/dL (3.2-5.5); ALBUMIN/GLOBULIN RATIO 1.6 (1.0-2.2); ALKALINE PHOSPHATASE 80 IU/L (42-121); ALT ALANINE AMINOTRANSFERASE 20 IU/L (10-60); AST ASPARTATE AMINOTRANSFERASE 18 IU/L (10-42); BILIRUBIN,TOTAL 1.4 mg/dL (0.2-1.0); BUN - BLOOD UREA NITROGEN 16 mg/dL (6-20); CALCIUM 9.4 mg/dL (8.5-10.3); CARBON DIOXIDE - CO2 30 mmol/L (21-32); CHLORIDE 104 mmol/L (101-111); CHOL/HDL RATIO 3.5 (<5.0); CHOLESTEROL 140 mg/dL; CREATININE 1.2 mg/dL (0.6-1.2); GLUCOSE 102 mg/dL (70-100); HDL CHOLESTEROL 40 mg/dL; LDL CHOLESTEROL,CALCULATED 87 mg/dL; LDL/HDL RATIO 2.2 (<3.6); SODIUM 143 mmol/L (135-145); VLDL CHOLESTEROL 13 mg/dL
== END 2020-02-18 23:59 | disposition home or self-care (01) ==
LOC: LAB.WCP 08:00
PROVIDERS: ATTEND Internal Medicine
DX: I10 Essential (primary) hypertension (principal); E04.1 Nontoxic single thyroid nodule
CPT/HCPCS: 36415; 80053; 80061; 83721; 84443; 85025

== ENCOUNTER 2021-02-06 08:00 | Outpatient (CLI) | payer MEDICARE, MEDICAID ==
[2021-02-06 13:19] LABS: BASOPHILS % (AUTO) 0.6 %; EOSINOPHILS # (AUTO) 0.2 10^3/uL (0.0-0.7); EOSINOPHILS % (AUTO) 2.8 %; HCT - HEMATOCRIT 42.7 % (42.0-52.0); HGB - HEMOGLOBIN 15.1 g/dL (14.0-18.0); LYMPHOCYTES # (AUTO) 1.4 10^3/uL (1.5-3.5); LYMPHOCYTES % (AUTO) 21.9 %; MEAN CORPUSCULAR HEMOGLOBIN 30.1 pg (27.0-31.0); MEAN CORPUSCULAR HGB CONC 35.4 g/dL (32.0-36.0); MEAN CORPUSCULAR VOLUME 85.1 fL (80.0-94.0); MEAN PLATELET VOLUME 9.7 fL (7.4-11.4); MONOCYTES # (AUTO) 0.4 10^3/uL (0.0-1.0); NEUTROPHILS # (AUTO) 4.4 10^3/uL (1.5-6.6); NEUTROPHILS % (AUTO) 68.2 %; PLT - PLATELET COUNT 173 10^3/uL (130-450); RED BLOOD COUNT 5.02 10^6/uL (4.70-6.10); RED CELL DISTRIBUTION WIDTH 13.4 % (12.0-15.0); WHITE BLOOD COUNT 6.5 x10^3/uL (4.8-10.8)
[2021-02-06 14:01] LABS: ALBUMIN 3.9 g/dL (3.2-5.5); ALBUMIN/GLOBULIN RATIO 1.3 (1.0-2.2); ALKALINE PHOSPHATASE 58 IU/L (42-121); ALT ALANINE AMINOTRANSFERASE 15 IU/L (10-60); AST ASPARTATE AMINOTRANSFERASE 18 IU/L (10-42); BILIRUBIN,TOTAL 1.9 mg/dL (0.2-1.0); BUN - BLOOD UREA NITROGEN 16 mg/dL (6-20); CALCIUM 8.9 mg/dL (8.5-10.3); CARBON DIOXIDE - CO2 27 mmol/L (21-32); CHLORIDE 104 mmol/L (101-111); CHOL/HDL RATIO 6.4 (<5.0); CHOLESTEROL 245 mg/dL; CREATININE 1.1 mg/dL (0.6-1.2); GFR - MDRD 65 (>89); GLUCOSE 123 mg/dL (70-100); HDL CHOLESTEROL 38 mg/dL; LDL CHOLESTEROL,CALCULATED 185 mg/dL; LDL/HDL RATIO 4.9 (<3.6); POTASSIUM 3.2 mmol/L (3.5-5.0); SODIUM 139 mmol/L (135-145); TOTAL PROTEIN 6.8 g/dL (6.7-8.2); TRIGLYCERIDES 112 mg/dL; VLDL CHOLESTEROL 22 mg/dL
[2021-02-06 14:09] LABS: THYROID STIMULATING HORMONE 3.51 uIU/mL (0.34-5.60)
== END 2021-02-06 23:59 | disposition home or self-care (01) ==
LOC: LAB.WCP 08:00
PROVIDERS: ATTEND Internal Medicine
DX: I10 Essential (primary) hypertension (principal); E78.5 Hyperlipidemia, unspecified; Z12.5 Encounter for screening for malignant neoplasm of prostate; E04.1 Nontoxic single thyroid nodule
CPT/HCPCS: 36415; 80053; 80061; 84443; 85025; G0103; 83721; 84153

== ENCOUNTER 2021-02-09 10:21 | Outpatient (CLI) | payer MEDICARE, MEDICAID ==
--- NOTE | 2021-02-09 14:52 | Ultrasound Report ---
PROCEDURE: Head or Neck Soft Tissue INDICATIONS: THYROID NODULE TECHNIQUE: Real time scanning was performed of the neck region of interest, with image documentation . COMPARISON: Prior studies dating back to March 22, 2017. FINDINGS: Right: Thyroid lobe measures 4.9 x 1.7 x 1.2 cm, and is homogenous in echotexture. Left: Thyroid lobe measures 4.1 x 1.7 x 0.9 cm, and is homogenous in echotexture. Isthmus: 0.2 Nodule number: 1 Location: Right inferior Size: 1.3 x 1.1 x 0.9 cm; previously 1.2 x 1 x 0.9 cm. Composition: Solid Echogenicity: Hypoechoic Shape: Wider than tall. Margins: Lobulated Echogenic foci: Punctate Total points: 9 ACR TI-RADS category: Highly suspicious: FNA if greater than 1 cm IMPRESSION: 1. Highly suspicious thyroid nodule in the right thyroid. Consider correlation with prior pathology r eport and repeat FNA as warranted. Reviewed by: Mason Koch MD on 02/09/2021 2:50 PM PST Approved by: Mason Koch MD on 02/09/2021 2:50 PM PST Station ID: [id number]
== END 2021-02-09 10:22 | disposition home or self-care (01) ==
LOC: DI 10:21
PROVIDERS: ATTEND Internal Medicine
DX: E04.1 Nontoxic single thyroid nodule (principal)

== ENCOUNTER 2021-05-07 10:23 | Outpatient (CLI) | payer MEDICARE, MEDICAID ==
[2021-05-07 18:32] LABS: PROLACTIN 8.65 ng/mL
[2021-05-07 18:56] LABS: LUTEINIZING HORMONE 5.77 mIU/mL
[2021-05-07 20:47] LABS: ESTIMATED AVERAGE GLUCOSE 100 mg/dL (70-100); HEMOGLOBIN A1c% 5.1 % (4.27-6.07)
== END 2021-05-07 10:24 | disposition home or self-care (01) ==
LOC: LAB.N 10:23
PROVIDERS: ATTEND Internal Medicine
DX: E29.1 Testicular hypofunction (principal); R73.01 Impaired fasting glucose
CPT/HCPCS: 36415; 83002; 83036; 84146; 84403

== ENCOUNTER 2022-09-21 12:13 | Outpatient (CLI) | payer MEDICARE, MEDICAID | END 2022-09-21 23:59 | disposition critical access hospital (66) | LOC: EMS 12:13 | DX: R53.1 Weakness (principal); R42 Dizziness and giddiness; R20.0 Anesthesia of skin | CPT/HCPCS: A0425; A0429 ==

== ENCOUNTER 2022-12-09 09:41 | Outpatient (CLI) | payer MEDICARE, MEDICAID | END 2022-12-09 23:59 | disposition critical access hospital (66) | LOC: EMS 09:41 | DX: R42 Dizziness and giddiness (principal); R11.2 Nausea with vomiting, unspecified; I49.9 Cardiac arrhythmia, unspecified | CPT/HCPCS: A0425; A0427 ==

== ENCOUNTER 2022-12-09 10:04 | Emergency (ER) | payer MEDICARE, MEDICAID ==
[2022-12-09 10:31] LABS: BASOPHILS % (AUTO) 0.5 %; EOSINOPHILS # (AUTO) 0.1 10^3/uL (0.0-0.7); EOSINOPHILS % (AUTO) 1.2 %; HGB - HEMOGLOBIN 14.5 g/dL (14.0-18.0); LYMPHOCYTES # (AUTO) 0.9 10^3/uL (1.5-3.5); LYMPHOCYTES % (AUTO) 14.4 %; MEAN CORPUSCULAR HGB CONC 34.5 g/dL (32.0-36.0); MEAN CORPUSCULAR VOLUME 86.8 fL (80.0-94.0); MEAN PLATELET VOLUME 9.8 fL (7.4-11.4); MONOCYTES # (AUTO) 0.3 10^3/uL (0.0-1.0); MONOCYTES % (AUTO) 4.7 %; NEUTROPHILS # (AUTO) 4.7 10^3/uL (1.5-6.6); NEUTROPHILS % (AUTO) 78.9 %; PLT - PLATELET COUNT 154 10^3/uL (130-450); RED BLOOD COUNT 4.84 10^6/uL (4.70-6.10); RED CELL DISTRIBUTION WIDTH 13.5 % (12.0-15.0)
[2022-12-09 10:42] LABS: ALBUMIN 4.1 g/dL (3.2-5.5); ALBUMIN/GLOBULIN RATIO 1.8 (1.0-2.2); BILIRUBIN,TOTAL 2.4 mg/dL (0.2-1.0); CALCIUM 9.7 mg/dL (8.5-10.3); CREATININE 0.9 mg/dL (0.6-1.3); POTASSIUM 3.2 mmol/L (3.5-4.5); TOTAL PROTEIN 6.4 g/dL (6.4-8.9)
[2022-12-09] MEDS ORDERED: SODIUM CHLORIDE 0.9% 500 ML IV STA (11:15)
[2022-12-09] MEDS ORDERED: POTASSIUM CHLORIDE 20 MEQ TABLET PO STA (11:50)
--- NOTE | 2022-12-09 12:13 | XRAY Report ---
PROCEDURE: Chest 1 View X-Ray INDICATIONS: dizzy TECHNIQUE: One view of the chest was acquired. COMPARISON: None. FINDINGS: Surgical changes and devices: None. Lungs and pleura: No pleural effusions or pneumothorax. Lungs are clear. Mediastinum: Mediastinal contours appear normal. Heart size is normal. Bones and chest wall: No suspicious bony lesions. Overlying soft tissues appear unremarkable. IMPRESSION: No acute cardiopulmonary process. Reviewed by: Tiffany Plunkett MD on 12/09/2022 12:12 PM PDT Approved by: Tiffany Plunkett MD on 12/09/2022 12:12 PM PDT Station ID: [id number]
--- NOTE | 2022-12-09 12:33 | ED Physician Documentation ---
History of Present Illness - Stated complaint Stated Complaint: DIZZY/WEAK N/V - Chief complaint Chief Complaint: Neuro - History obtained from History obtained from: Patient - Additonal information Additional information: Patient is a 77-year-old male with a history of a recent CVA with mild residual left-sided deficits and prior history of vertigo presenting for evaluation of feeling dizzy and lightheaded this morning. Patient states this feels similar to his prior vertigo episodes. He does have a history of A-fib and is on Eliquis. Denies head injury or headache. He tried meclizine at home without significant improvement. He has received Valium in the past for vertigo symptoms. Denies chest pain, shortness of air, abdominal symptoms. Recently has had some loose stools. No recent antibiotic use.Reports associated nausea and received 2 doses of Zofran this morning. Review of Systems Constitutional: denies: Fever Cardiac: denies: Chest pain / pressure Respiratory: denies: Dyspnea GI: reports: Nausea, Vomiting. denies: Abdominal Pain : denies: Dysuria Neurologic: denies: Headache, Head injury PD PAST MEDICAL HISTORY - Past Medical History Cardiovascular: Hypertension Respiratory: None Neuro: CVA, TIA Endocrine/Autoimmune: None GI: None : None HEENT: Chronic hearing loss Psych: None Musculoskeletal: None Derm: None - Past Surgical History Past Surgical History: Yes HEENT: Tonsil/Adenoidectomy Derm: Other - Present Medications Home Medications: Ambulatory Orders Medication Instructions Recorded Confirmed Meclizine [Antivert] 25 mg PO Q6H PRN #20 tablet 03/02/17 03/02/17 Ondansetron Odt [Zofran] 4 mg TL Q6H PRN #10 tablet 03/02/17 03/02/17 Azithromycin 1 tab PO DAILY #4 tablet 04/24/18 Benzonatate [Tessalon Perle] 100 - 200 mg PO TID PRN #30 capsule 04/24/18 Hydrocodone/Acetaminophen 1 - 2 each PO Q6H PRN #10 tablet 04/24/18 [Hydrocodon-Acetaminophen 5-325] diazePAM [Valium] 5 mg PO TID PRN #10 tablet 04/29/18 Meclizine HCl [Motion Sickness] 25 mg PO Q6H PRN #20 tablet 12/09/22 - Allergies Allergies/Adverse Reactions: Allergies Allergy/AdvReac Type Severity Reaction Status Date / Time Penicillins Allergy swelling Verified 09/21/22 13:06 - Social History Does the pt smoke?: No Smoking Status: Never smoker Does the pt drink ETOH?: Yes Does the pt have substance abuse?: No - Immunizations Immunizations are current?: No Immunizations: TDAP current <10years - POLST Patient has POLST: No PD ED PE NORMAL - General General: Alert and oriented X 3, No acute distress, Well developed/nourished - HEENT HEENT: Atraumatic, PERRL, EOMI, Moist mucous membranes, Pharynx benign - Neck Neck: Supple, no meningeal sign - Cardiac Cardiac: RRR, No murmur - Respiratory Respiratory: No respiratory distress, Clear bilaterally - Abdomen Abdomen: Normal bowel sounds, Soft, Non tender, Non distended - Neuro Neuro: Alert and oriented X 3, crime lab technician 2-12 intact, No sensory deficit, Normal speech, Other (Normal [id number] bilaterally). No: No motor deficit (Mild left-sided weakness when compared to the right, no drift with upper or lower extremities) Results - Vitals Vitals: Vital Signs - 24 hr 12/09/22 12/09/22 12/09/22 10:12 11:15 13:51 Temperature 35.6 C L Heart Rate 52 L 60 55 L Respiratory 18 18 15 Rate Blood Pressure 160/72 H 158/66 H 137/72 H O2 Saturation 100 98 99 Oxygen O2 Source Room air - EKG (time done) 1021 EKG releavant findings:: EKG personally interpreted by author of this note. Relevant findings are: Rate 49, sinus bradycardia, no STEMI - Labs Labs: Laboratory Tests 12/09/22 12/09/22 10:15 10:15 WBC 6.0 RBC 4.84 Hgb 14.5 Hct 42.0 MCV 86.8 MCH 30.0 MCHC 34.5 RDW 13.5 Plt Count 154 MPV 9.8 Neut # (Auto) 4.7 Lymph # (Auto) 0.9 L Banks # (Auto) 0.3 Eos # (Auto) 0.1 Baso # (Auto) 0.0 Absolute Nucleated RBC 0.00 Nucleated RBC % 0.0 Sodium 142 Potassium 3.2 L Chloride 107 Carbon Dioxide 28 Anion Gap 7.0 BUN 15 Creatinine 0.9 Estimated GFR (MDRD) 82 L Glucose 141 H Calcium 9.7 Total Bilirubin 2.4 H AST 14 ALT 16 Alkaline Phosphatase 103 Total Protein 6.4 Albumin 4.1 Globulin 2.3 Albumin/Globulin Ratio 1.8 Lipase 9 L PD Medical Decision Making - ED course Complexity details: reviewed results, re-evaluated patient, d/w patient ED course: Patient is a 77-year-old male with a history of recent stroke, on Eliquis and vertigo presenting for evaluation of dizziness with starting this morning. He has a mild left-sided weakness which is residual from his recent stroke. Otherwise no new deficits noted.EKG is nonischemic. No chest pain or shortness of air. Chest x-ray which I reviewed is negative for pneumonia. CBC, chemistries are unremarkable other than mild hypokalemia which was replaced orally. CT head was obtained as patient is on a blood thinner and is negative for any intracranial bleed. Patient took meclizine prior to arrival and is feeling better here. He states he is almost out of this medication and is requesting a refill. Patient and caregiver at bedside are advised regarding treatment plan as well as need for close follow-up with primary care provider. Discussed worsening symptoms to return for. Departure - Departure Disposition: 01 Home, Self Care Clinical Impression: Dizziness, Hypokalemia Condition: Stable Instructions: ED Dizziness UKO Prescriptions: Meclizine HCl [Motion Sickness] 25 mg PO Q6H PRN #20 tablet PRN Reason: Dizziness Comments: You were evaluated for dizziness and your symptoms appear to be better after taking your home meclizine. I sent a prescription of meclizine to [facility] in [place]. Your potassium was slightly low. Please make sure you are eating and drinking enough. I would recommend close follow-up with your primary care provider. Return to the emergency department with any worsening symptoms. Forms: PCP List Discharge Date/Time: 12/09/22 13:51
--- NOTE | 2022-12-09 13:22 | CT Report ---
PROCEDURE: HEAD WO INDICATIONS: dizzy on eliquis TECHNIQUE: Noncontrast 4.5 mm thick angled axial sections acquired from the foramen magnum to the vertex. For r adiation dose reduction, the following was used: automated exposure control, adjustment of mA and/or kV according to patient size. COMPARISON: CT head 09/21/2022 FINDINGS: Image quality: Excellent. The ventricular system and cortical sulci demonstrate atrophy, consistent for patient's stated age. There are areas of hypodensity in the periventricular and subcortical white matter. There is no acut e intra or extra-axial fluid collection. No acute hemorrhage, mass lesion or midline shift. Previou s area of subacute ischemia demonstrate expected interval evolution with encephalomalacia in the righ t temporal parietal occipital lobe. Brainstem is unremarkable. Globes are symmetrical. Sinuses are aerated. Osseous structures are intact. IMPRESSION: No acute intracranial process. Right-sided infarction as described above initially seen a subacute ischemia on 09/21/2022. Atrophy and chronic microvascular ischemic changes are present. Reviewed by: Tiffany Plunkett MD on 12/09/2022 1:20 PM PDT Approved by: Tiffany Plunkett MD on 12/09/2022 1:20 PM PDT Station ID: [id number]
[2022-12-09 13:55] VITALS: BP 137/72; O2SAT 99
== END 2022-12-09 13:51 | disposition home or self-care (01) ==
LOC: EDUNIT# → SUPCPDRO 10:04 → ED 10:04
DX: E87.6 Hypokalemia (principal); R42 Dizziness and giddiness; I10 Essential (primary) hypertension; I48.91 Unspecified atrial fibrillation; Z79.01 Long term (current) use of anticoagulants
CPT/HCPCS: 36415; 70450; 71045; 80053; 83690; 85025; 93005; 99284; A9270

== ENCOUNTER 2022-12-13 08:00 | Outpatient (CLI) | payer MEDICARE, MEDICAID ==
[2022-12-13 12:24] LABS: ALBUMIN 4.3 g/dL (3.2-5.5); ALBUMIN/GLOBULIN RATIO 1.9 (1.0-2.2); ALKALINE PHOSPHATASE 116 IU/L (42-121); ALT ALANINE AMINOTRANSFERASE 16 IU/L (10-60); AST ASPARTATE AMINOTRANSFERASE 14 IU/L (10-42); BILIRUBIN,TOTAL 2.4 mg/dL (0.2-1.0); BUN - BLOOD UREA NITROGEN 15 mg/dL (6-20); CALCIUM 9.9 mg/dL (8.5-10.3); CARBON DIOXIDE - CO2 32 mmol/L (21-32); CHLORIDE 106 mmol/L (101-111); CHOL/HDL RATIO 2.4 (<5.0); CHOLESTEROL 93 mg/dL; CREATININE 1.1 mg/dL (0.6-1.3); GFR - MDRD 65 (>89); GLUCOSE 98 mg/dL (74-104); HDL CHOLESTEROL 38 mg/dL; LDL CHOLESTEROL,CALCULATED 37 mg/dL; SODIUM 141 mmol/L (135-145); TOTAL PROTEIN 6.6 g/dL (6.4-8.9); TRIGLYCERIDES 89 mg/dL (48-352); VLDL CHOLESTEROL 18 mg/dL
== END 2022-12-13 08:01 | disposition home or self-care (01) ==
LOC: LAB.N 08:00
PROVIDERS: ATTEND Internal Medicine
DX: I10 Essential (primary) hypertension (principal); E78.2 Mixed hyperlipidemia
CPT/HCPCS: 36415; 80053; 80061; 83721

== ENCOUNTER 2022-12-24 13:38 | Outpatient (CLI) | payer MEDICARE, MEDICAID ==
--- NOTE | 2022-12-24 15:12 | Sleep Patient Instructions ---
Sleep Center Visit Summary - Patient Visit Information Reason for Visit: Initial consult for evaluation of sleep disordered breathing and other sleep issues. - Patient Instructions Instructions Attached: Sleep Study Additional Instructions: You will be completing a sleep study, either an in-lab polysomnography (PSG) or home sleep study (HST). You will follow-up in the sleep care office after the sleep study is completed to hear the results and talk about therapy, if needed. You will be called by our office staff to schedule this appointment, but you may contact us with any questions. - Clinic Information Contact: [facility] [address] [place] [address] [email or web address] T: [phone]
--- NOTE | 2022-12-24 15:19 | SLEEP CARE CONSULTATION ---
Information from patient questionnaire entered by Cielo Kennedy. I have reviewed and concur with the information entered by Cielo Kennedy. This document represents the service I personally performed and the decisions made by me, Sharifa Saeed ARNP. History of Present Illness Service Date and Time: 12/24/2022 1337 Reason for Visit: New patient Chief Complaint: reports: Other (REFFERED BY DOCTOR) Usual bedtime: 7PM Time it takes to fall asleep: 30MIN Snores at night: Yes Observed to quit breathing while asleep: No Sleeps alone due to snoring: No Number of times waking at night: 2 Reasons for waking at night: reports: Bathroom. denies: Choking, Snoring, Gasping for air Toss, Turn, or Twitch while sleeping: No Recalls having dreams: No Usually gets out of bed at: 0700 Feels refreshed in the morning: Yes (sometimes) Morning headache: No Sleepy or fatigued during the day: Yes (sometimes) Ever fallen asleep while driving: No Takes day naps: Yes (tries to take daily; unsure of how long he sleeps) Dreams during day naps: No Prior sleep studies: Yes (at [facility] in 2013, negative study) Additional HPI information: I had the pleasure of seeing JUDE SILVA today regarding the possibility of him having a sleep disorder. His current complaints are snoring and unrefreshed sleep. He had a stroke earlier this year. He says is also having a heart issue but he is not sure what it is. He states he has memory issues and cannot remember things like he used to. His usually takes care of things but she had to go [facility]. She was not here to help with history during his appointment. 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 Patient is Single and lives in . Have you smoked in the past 12 months: No Alcohol use: Yes Alcohol amount and frequency: occasional drinks Caffeine use: Yes Caffeine amount and frequency: SOMETIMES 2 A WEEK Family History Family history of sleep disordered breathing: No Allergies and Home Medications Known drug allergies: Yes ( LISTED) Drug allergies reviewed: Yes Home medication list reviewed: Yes (takes multiple meds but does not know them or have list) Allergy and home medication list: Allergies Penicillins Allergy swelling Review of Systems Cardiovascular: reports: high blood pressure Respiratory: denies: shortness of breath Gastrointestinal: denies: heartburn Neurological: denies: headaches Psychiatric: denies: anxiety, depression Ear/Nose/Throat: reports: sinus problems, tonsillectomy, wisdom teeth removed Physical Exam Vital signs obtained and entered by: CIELO Reyes MA Blood Pressure: 120/72 (LEFT ARM) Cuff size: regular Heart Rate: 58 O2 Saturation: 97 Height: 6 ft Weight: 192 lb 6.4 oz Body Mass Index: 26.1 BMI Classification: Overweight Neck circumference: 16 Mouth and throat: narrow oropharynx Soft palate: long Hard palate: normal Uvula: normal Uvula visualization: 50% Mallampati Class II Tongue: normal in size Tonsils: absent bilaterally Neck: normal w/o lymphadenopathy or thyromegaly Heart: regular rate and rhythm Lungs: clear bilaterally Impression and Plan 1. Suspected Obstructive Sleep Apnea-Hypopnea Syndrome, as suggested by a history of loud and irregular snoring, unrefreshed sleep and cognitive impairment. Narrow oropharynx and obesity are common predisposing factors for obstructive sleep apnea-hypopnea syndrome. I recommend proceeding to polysomnography to confirm the diagnosis and to assess severity. If the patient has significant sleep disordered breathing, a manual CPAP titration study will also be performed to find the optimal treatment pressure. I informed the patient of what the sleep studies involve and after some discussion, obtained agreement to proceed. The pathophysiology of obstructive sleep apnea-hypopnea syndrome was discussed with the patient and health risks of cardiovascular and cerebrovascular disease if not treated. Risks of drowsy driving discussed in detail and patient advised to avoid long distance driving and to thread puller at the first sign of drowsiness. Patient agreed to plan. * Schedule polysomnography. * Avoid long distance driving or driving when feeling sleepy. * Avoid alcohol, sedative and muscle relaxant around bedtime. * Attempt to lose weight. * Review instructions provided by trained office staff on how to prepare for the sleep study. * Return for follow-up after sleep study completed. Plan: PSG Visit Type: In Office Time Spent with Patient (minutes): 31 Provider Statement: I spent 100% of the Face to Face Visit with the patient with greater than 50% spent counseling the patient and coordination of care.
[2022-12-24 15:23] VITALS: BP 120/72; O2SAT 97
== END 2022-12-24 13:39 | disposition home or self-care (01) ==
LOC: SC 13:38
PROVIDERS: ATTEND Nurse Practitioner Family
DX: R53.83 Other fatigue (principal); R41.89 Other symptoms and signs involving cognitive functions and awareness; R06.83 Snoring; G47.8 Other sleep disorders; I10 Essential (primary) hypertension; E66.3 Overweight; Z68.26 Body mass index [BMI] 26.0-26.9, adult; I69.311 Memory deficit following cerebral infarction
CPT/HCPCS: 99203; G0463; 99212

== ENCOUNTER 2023-07-25 08:52 | Outpatient (CLI) | payer MEDICARE, MEDICAID ==
[2023-07-25 12:02] LABS: BASOPHILS # (AUTO) 0.1 10^3/uL (0.0-0.1); BASOPHILS % (AUTO) 0.9 %; EOSINOPHILS # (AUTO) 0.3 10^3/uL (0.0-0.7); EOSINOPHILS % (AUTO) 3.8 %; HCT - HEMATOCRIT 42.2 % (42.0-52.0); HGB - HEMOGLOBIN 14.2 g/dL (14.0-18.0); LYMPHOCYTES # (AUTO) 1.7 10^3/uL (1.5-3.5); LYMPHOCYTES % (AUTO) 24.4 %; MEAN CORPUSCULAR HGB CONC 33.6 g/dL (32.0-36.0); MEAN PLATELET VOLUME 10.2 fL (7.4-11.4); MONOCYTES # (AUTO) 0.4 10^3/uL (0.0-1.0); MONOCYTES % (AUTO) 5.3 %; NEUTROPHILS # (AUTO) 4.5 10^3/uL (1.5-6.6); NEUTROPHILS % (AUTO) 65.3 %; PLT - PLATELET COUNT 172 10^3/uL (130-450); RED BLOOD COUNT 4.74 10^6/uL (4.70-6.10); RED CELL DISTRIBUTION WIDTH 13.6 % (12.0-15.0); WHITE BLOOD COUNT 6.9 x10^3/uL (4.8-10.8)
[2023-07-25 12:21] LABS: ALBUMIN 4.1 g/dL (3.2-5.5); ALBUMIN/GLOBULIN RATIO 1.6 (1.0-2.2); ALKALINE PHOSPHATASE 100 IU/L (42-121); ALT ALANINE AMINOTRANSFERASE 12 IU/L (10-60); AST ASPARTATE AMINOTRANSFERASE 12 IU/L (10-42); BILIRUBIN,TOTAL 1.8 mg/dL (0.2-1.0); BUN - BLOOD UREA NITROGEN 12 mg/dL (6-20); CALCIUM 9.8 mg/dL (8.5-10.3); CARBON DIOXIDE - CO2 32 mmol/L (21-32); CHLORIDE 109 mmol/L (101-111); CHOL/HDL RATIO 2.9 (<5.0); CHOLESTEROL 127 mg/dL; CREATININE 1.1 mg/dL (0.6-1.3); GFR - MDRD 65 (>89); GLUCOSE 112 mg/dL (74-104); HDL CHOLESTEROL 44 mg/dL; LDL CHOLESTEROL,CALCULATED 68 mg/dL; LDL/HDL RATIO 1.5 (<3.6); POTASSIUM 3.6 mmol/L (3.5-4.5); SODIUM 144 mmol/L (135-145); TOTAL PROTEIN 6.6 g/dL (6.4-8.9); TRIGLYCERIDES 76 mg/dL (48-352); VLDL CHOLESTEROL 15 mg/dL
[2023-07-25 12:31] LABS: THYROID STIMULATING HORMONE 4.08 uIU/mL (0.34-5.60)
[2023-07-25 13:26] LABS: ESTIMATED AVERAGE GLUCOSE 88 mg/dL (70-100); HEMOGLOBIN A1c% 4.7 % (4.27-6.07)
== END 2023-07-25 08:53 | disposition home or self-care (01) ==
LOC: LAB.N 08:52
PROVIDERS: ATTEND Internal Medicine
DX: E78.5 Hyperlipidemia, unspecified (principal); R73.01 Impaired fasting glucose; E04.1 Nontoxic single thyroid nodule; Z12.5 Encounter for screening for malignant neoplasm of prostate; I10 Essential (primary) hypertension
CPT/HCPCS: 36415; 80053; 80061; 83036; 84443; 85025; G0103; 83721; 84153

== ENCOUNTER 2023-09-29 07:58 | Outpatient (CLI) | payer MEDICARE, MEDICAID ==
--- NOTE | 2023-09-29 15:04 | Ultrasound Report ---
PROCEDURE: Soft Tissue Head or Neck INDICATIONS: THYROID NODULE. Previously biopsied with benign results. TECHNIQUE: Real-time scanning was performed of the thyroid gland, with image documentation. COMPARISON: Ultrasound 02/08/2017, 02/09/2021 FINDINGS: Right: Thyroid lobe measures 4.8 x 2.1 x 0.9 cm. Left: Thyroid lobe measures 4.4 x 1.5 x 1.0 cm Isthmus: 0.3 cm thick. Echotexture: Homogeneous. Nodule number: One Location: Right inferior pole Size: 1.2 x 0.9 x 0.7 cm. 1.3 x 1.1 x 0.9 cm previously. Composition: Solid (2 points). Echogenicity: Hypoechoic (2 points). Shape: wider than tall (0 points). Margins: Smooth (0 points). Echogenic foci: Punctate echogenic foci (3 points). Total points: 7 ACR TI-RADS category: TI-RADS 5: Highly suspicious. IMPRESSION: No significant change in size of the previously biopsied thyroid nodule. Rebiopsy is not warranted at this time. This has been relatively stable in size compared with 02/08/2017. According to guidelines, no further follow-up is necessary. ACR TI-RADS definitions and recommendations: TI-RADS 1 (benign): 0 points. FNA not needed. TI-RADS 2 (not suspicious): 2 points. FNA not needed. TI-RADS 3 (mildly suspicious): 3 points. "FNA if 2.5 cm or larger, follow up if 1.5 cm or larger (at 1, 3, and 5 years). TI-RADS 4 (moderately suspicious): 4-6 points. "FNA if 1.5 cm or larger, follow up if 1 cm or larger (at 1, 2, 3, and 5 years). TI-RADS 5 (highly suspicious): 7 points or more. "FNA if 1 cm or larger, follow up if 0.5 cm or larger (every year for 5 years). Reviewed by: Percy Rodrigues MD on 09/29/2023 3:03 PM PDT Approved by: Percy Rodrigues MD on 09/29/2023 3:03 PM PDT Station ID: [id number]
== END 2023-09-29 07:59 | disposition home or self-care (01) ==
LOC: DI 07:58
PROVIDERS: ATTEND Internal Medicine
DX: E04.1 Nontoxic single thyroid nodule (principal)

== ENCOUNTER 2023-11-23 07:15 | Outpatient (CLI) | payer MEDICARE, MEDICAID ==
[2023-11-23 11:50] LABS: ALBUMIN 3.9 g/dL (3.2-5.5); BILIRUBIN,DIRECT 0.18 mg/dL (0.03-0.18); BILIRUBIN,TOTAL 1.2 mg/dL (0.2-1.0); TOTAL PROTEIN 5.8 g/dL (6.4-8.9)
== END 2023-11-23 07:16 | disposition home or self-care (01) ==
LOC: LAB.N 07:15
PROVIDERS: ATTEND Internal Medicine
DX: B35.1 Tinea unguium (principal)
CPT/HCPCS: 36415; 80076

== ENCOUNTER 2024-03-13 10:30 | Observation (INO) ==
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
[2024-03-13] MEDS: SODIUM CHLORIDE 0.9% 1,000 ML IV STA (10:55)
[2024-03-13 11:03] LABS: BASOPHILS % (AUTO) 0.4 %; EOSINOPHILS # (AUTO) 0.1 10^3/uL (0.0-0.7); EOSINOPHILS % (AUTO) 0.6 %; HCT - HEMATOCRIT 43.7 % (42.0-52.0); HGB - HEMOGLOBIN 14.5 g/dL (14.0-18.0); LYMPHOCYTES # (AUTO) 0.9 10^3/uL (1.5-3.5); LYMPHOCYTES % (AUTO) 10.4 %; MEAN CORPUSCULAR HEMOGLOBIN 30.2 pg (27.0-31.0); MEAN CORPUSCULAR HGB CONC 33.2 g/dL (32.0-36.0); MEAN PLATELET VOLUME 9.9 fL (7.4-11.4); MONOCYTES # (AUTO) 0.4 10^3/uL (0.0-1.0); MONOCYTES % (AUTO) 4.4 %; NEUTROPHILS # (AUTO) 6.9 10^3/uL (1.5-6.6); PLT - PLATELET COUNT 133 10^3/uL (130-450); RED CELL DISTRIBUTION WIDTH 13.4 % (12.0-15.0); WHITE BLOOD COUNT 8.4 x10^3/uL (4.8-10.8)
--- NOTE | 2024-03-13 11:05 | CT Report ---
PROCEDURE: CT Head WO INDICATIONS: focal weakness and seizure TECHNIQUE: Noncontrast 4.5 mm thick angled axial sections acquired from the foramen magnum to the vertex. For r adiation dose reduction, the following was used: automated exposure control, adjustment of mA and/or kV according to patient size. COMPARISON: 12/09/2022. FINDINGS: Image quality: Excellent. CSF spaces: Basal cisterns are patent. No extra-axial fluid collections. Ex vacuo dilatation of the right lateral ventricle. Brain: Encephalomalacia within the right temporal, parietal and occipital lobes from prior infarct. No midline shift. No intracranial masses or hemorrhage. Dsouza-white matter interface is normal. Age -related global volume loss and chronic microvascular ischemic changes. Intracranial atherosclerotic vascular calcifications. Skull and face: Calvarium and visualized facial bones are intact, without suspicious lesions. Sinuses: Visualized sinuses and mastoids are clear. IMPRESSION: 1.No acute intracranial pathology. 2.Redemonstration of large area of encephalomalacia within the right cerebral hemisphere as described above, consistent with prior infarct. Reviewed by: Josué Thibodeaux MD on 03/13/2024 11:03 AM PST Approved by: Josué Thibodeaux MD on 03/13/2024 11:03 AM PST Station ID: [id number]
[2024-03-13] MEDS: LORazepam 2 MG/ML VIAL IVP STA ×2 (11:06→11:47)
[2024-03-13 11:12] LABS: PARTIAL THROMBOPLASTIN TIME 26.7 secs (24.9-33.3)
[2024-03-13 11:17] LABS: INR 1.2 (0.8-1.2); PT - PROTHROMBIN TIME 12.5 secs (9.9-12.6)
[2024-03-13 11:24] LABS: ABG PCO2 30 mmHg (34-45); ABG PH 7.45 (7.35-7.45)
[2024-03-13 11:25] LABS: ABG BASE EXCESS -2.1 mmol/L (-2.0-3.0); ABG HCO3 20.5 mmol/L (22.0-26.0); ABG MODE OF VENTILATION ASSIST/CONTROL; ABG OXYGEN SATURATION 99 % (94-98); ABG TCO2 21.4 MMOL/L (21.0-29.0); ALLEN TEST POSITIVE
[2024-03-13 11:26] LABS: ALBUMIN 3.8 g/dL (3.2-5.5); ALBUMIN/GLOBULIN RATIO 2.1 (1.0-2.2); ALKALINE PHOSPHATASE 98 IU/L (42-121); ALT ALANINE AMINOTRANSFERASE 15 IU/L (10-60); AST ASPARTATE AMINOTRANSFERASE 15 IU/L (10-42); BILIRUBIN,TOTAL 1.2 mg/dL (0.2-1.0); BUN - BLOOD UREA NITROGEN 6 mg/dL (6-20); CALCIUM 8.3 mg/dL (8.5-10.3); CARBON DIOXIDE - CO2 20 mmol/L (21-32); CHLORIDE 104 mmol/L (101-111); GFR - MDRD 72 (>89); GLUCOSE 138 mg/dL (74-104); LIPASE < 10 U/L (11-82); POTASSIUM 3.2 mmol/L (3.5-4.5); SODIUM 141 mmol/L (135-145); TOTAL PROTEIN 5.6 g/dL (6.4-8.9)
[2024-03-13 11:26] LABS: ABG RESPIRATORY RATE 16 b/min
[2024-03-13 11:28] LABS: ABG PO2 181 mmHg (80-100)
--- NOTE | 2024-03-13 11:28 | CT Report ---
PROCEDURE: CT Angio Head/Neck INDICATIONS: focal weakness and seizure TECHNIQUE: After the administration of intravenous contrast, 1 mm thick sections acquired from the aortic arch t hrough the [employer] of [place]. 3-dimensional xfikigl-twpwptrwl-rogibltwul (MIP) and/or volume renderin g reformats were acquired of the central intracranial vasculature and neck separately. For radiation dose reduction, the following was used: automated exposure control, adjustment of mA and/or kV acco rding to patient size. CONTRAST: OMNI 300 80ML COMPARISON: 09/21/2022 FINDINGS: Image quality: Diagnostic. HEAD CT: Please refer to same day CT of the head. HEAD CT ANGIOGRAPHY: Anterior circulation: The right intracranial internal carotid artery is mildly decreased in size comp ared to the left, similar to prior. Left intracranial ICA is normal in caliber with mild atherosclero tic plaques. Right A1 segment is hypoplastic. Otherwise, the flow within the paired anterior cerebral arteries is normal and symmetric. Again seen is occlusion at the right M1 segment, stable compared t o prior. The left-sided MCA is patent and normal in caliber.. The anterior communicating artery is s een. No aneurysms are seen. Posterior circulation: Visualized portions of the vertebral arteries demonstrate normal caliber, and join to form a normal appearing basilar artery. Complete occlusion of the right PICC is redemonstrat ed. origin left AIR INTERCEPT CONTROLLER with normal opacification. No aneurysms are seen. NECK CT ANGIOGRAPHY: Carotid system: The great vessels demonstrate a conventional anatomy as they arise from the aortic [facility]. The origins of the common carotid arteries appear patent. The common carotid arteries demonstr ate normal caliber and courses. The bifurcation regions are both widely patent. The internal caroti d arteries demonstrate normal calibers and courses. Posterior circulation: The origins of the vertebral arteries both appear widely patent. The more portillo perior extracranial portions of both vertebral arteries also demonstrate normal courses and calibers. They join to form a normal appearing basilar artery. Soft tissues: Visualized neck soft tissues demonstrate no suspicious abnormalities. Endotracheal tub e with tip at the right mainstem bronchus, recommend retraction. Bones: No suspicious bony lesions. Visualized cervical spine appears normally aligned. 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 The rig ht ICA is decreased in caliber compared to the left, similar to prior. Stable chronic occlusion of th e right AIR INTERCEPT CONTROLLER. No new acute intracranial arterial abnormalities. No significant abnormality is seen within the arteries of the neck. Endotracheal tube with tip at the right mainstem bronchus, recommend retraction. The estimate of stenosis included in the report of the imaging study was calculated using the NASCET method Reviewed by: Josué Thibodeaux MD on 03/13/2024 11:27 AM PST Approved by: Josué Thibodeaux MD on 03/13/2024 11:27 AM PST Station ID: [id number]
--- NOTE | 2024-03-13 11:29 | XRAY Report ---
PROCEDURE: XR Chest 1V INDICATIONS: intubated for tube positon TECHNIQUE: One view of the chest was acquired. COMPARISON: 12/09/2022. FINDINGS: Surgical changes and devices: Endotracheal tube with tip approximately 1.5 cm above the kristin Lungs and pleura: No pleural effusions or pneumothorax. No consolidation. Mediastinum: Mediastinal contours appear normal. Heart size is normal. Bones and chest wall: No suspicious bony lesions. Overlying soft tissues appear unremarkable. IMPRESSION: Endotracheal tube with tip approximately 1.5 cm above the kristin. Reviewed by: Josué Thibodeaux MD on 03/13/2024 11:28 AM PST Approved by: Josué Thibodeaux MD on 03/13/2024 11:28 AM PST Station ID: [id number]
[2024-03-13 11:33] LABS: BILIRUBIN,URINE NEGATIVE (NEGATIVE); GLUCOSE, URINE (UA) NEGATIVE (NEGATIVE); KETONES,URINE (UA) NEGATIVE (NEGATIVE); LEUKOCYTE ESTERASE, URINE NEGATIVE (NEGATIVE); NITRITE,URINE NEGATIVE (NEGATIVE); OCCULT BLOOD,URINE SMALL (NEGATIVE); PROTEIN,URINE 30 mg/dL (NEGATIVE); UROBILINOGEN,URINE 0.2 (NORMAL) E.U./dL (NORMAL)
[2024-03-13 11:34] LABS: CLARITY,URINE CLEAR (CLEAR)
[2024-03-13] MEDS: PROPOFOL 1000 MG/100 ML 1,000 MG/100 ML BOTTLE IV STA (11:40)
[2024-03-13 11:41] LABS: RBC,URINE 0-5 /HPF (0-5); SQUAMOUS EPITHELIAL CELL,UR NONE SEEN (<= Few); WBC,URINE 0-3 /HPF (0-3)
[2024-03-13 11:42] LABS: BACTERIA,URINE None Seen /HPF (None Seen); EPITHELIAL CELLS,UR RARE Transitional /HPF (<= Few)
[2024-03-13] MEDS ORDERED: levETIRAcetam 500 MG/5 ML VIAL IVP STA (11:58)
[2024-03-13] MEDS ORDERED: iohexoL-300 100 ML VIAL ONE (12:05)
[2024-03-13] MEDS: iohexoL-300 100 ML VIAL IVP ONE (12:05)
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
[2024-03-13] MEDS: levETIRAcetam 500 MG/5 ML VIAL IVP STA (13:36)
[2024-03-13] MEDS ORDERED: ONDANSETRON ODT 4 MG TABLET TL PRN (13:42)
[2024-03-13] MEDS ORDERED: ONDANSETRON 4 MG/2 ML VIAL IVP PRN (13:42)
--- NOTE | 2024-03-13 14:33 | PHARMACY PROGRESS NOTE ---
Best Possible Medication History Admit Date and Time: 03/13/24 [id number] Home Medications Medication Instructions Recorded Confirmed Type meclizine 25 mg tablet (Motion 25 mg PO Q6H PRN Dizziness #20 tabs 12/09/22 03/13/24 Rx Sickness (meclizine)) hydralazine 25 mg tablet 25 mg PO TID #270 tabs 01/04/24 03/13/24 Rx amlodipine 2.5 mg tablet 2.5 mg PO DAILY 03/13/24 03/13/24 History apixaban 5 mg tablet (Eliquis) 5 mg PO BID 03/13/24 03/13/24 History atorvastatin 80 mg tablet 80 mg PO QPM 03/13/24 03/13/24 History lisinopril 40 mg tablet 40 mg PO DAILY 03/13/24 03/13/24 History metoprolol succinate 25 mg 12.5 mg PO DAILY 03/13/24 03/13/24 History tablet,extended release 24 hr montelukast 10 mg tablet 10 mg PO QPM 03/13/24 03/13/24 History potassium chloride 10 mEq 10 meq PO DAILY 03/13/24 03/13/24 History tablet,extended release sertraline 25 mg tablet 25 mg PO DAILY 03/13/24 03/13/24 History tamsulosin 0.4 mg capsule 0.4 mg PO DAILY 03/13/24 03/13/24 History terbinafine HCl 250 mg tablet 250 mg PO DAILY 03/13/24 03/13/24 History Processed by: Pharmacy Medications reviewed in ED?: Yes Medication History completed: Yes Patient Interview: Pt unable to participate Secondary Source(s): Other family member, Pharmacy records (of note: pt has not picked up eliquis since end of September (got a 90d supply) might have missed some doses but family says is still on) and Insurance records [facility] Statement: As the person ultimately responsible for medication therapy, providers are able to order a medication from an existing home medication list in [facility] via the "Reconcile Routine" prior to Confirmation of that medication by technical support coordinator. Such practice is discouraged except when the physician, in their clinical judgment, deems that a medical need exists for a medication without regard to previous use.
[2024-03-13] MEDS: lisinopriL 20 MG TABLET PO SCH (15:32)
[2024-03-13] MEDS: amLODIPine 5 MG TABLET PO SCH (15:32)
[2024-03-13] MEDS: hydrALAZINE 25 MG TABLET PO SCH (15:32)
[2024-03-13] MEDS: ACETAMINOPHEN 325 MG TABLET PO PRN (15:40)
--- NOTE | 2024-03-13 16:09 | XRAY Report ---
PROCEDURE: XR Abdomen 1 V INDICATIONS: OGT placement TECHNIQUE: One view of the abdomen acquired. COMPARISON: Chest radiograph from earlier same day FINDINGS: Surgical changes and devices: Nasogastric tube is in place. Distal side-port and tip projects below t he level of diaphragm within the left upper quadrant. The distal side-port is visualized a short dist ance below the level of the diaphragm. Bowel: Bowel gas pattern is nonobstructive. Soft tissues: No suspicious abdominal calcifications. Visualized solid organ contours appear normal in size. Bones: No suspicious bony lesions. IMPRESSION: No acute abdominal pathology. Interval placement of nasogastric tube with distal tip and distal side port projecting below the leve l of diaphragm. Of note, the distal side-port is a short distance below the level of the diaphragm. A lthough positioning is likely adequate, consider advancing approximately 2-3 cm. Reviewed by: Justyn De Oliveira MD on 03/13/2024 4:08 PM PST Approved by: Justyn De Oliveira MD on 03/13/2024 4:08 PM PST Station ID: [id number]
[2024-03-13] MEDS: SODIUM CHLORIDE FLUSH 0.9% 10 ML SYRINGE IVP SCH (17:09)
[2024-03-13] MEDS: hydrALAZINE INJ 20 MG/ML VIAL IVP PRN (17:16)
[2024-03-13] MEDS: MORPHINE 2 MG/ML CARPUJECT IVP PRN (18:30)
--- NOTE | 2024-03-13 19:26 | PROVIDER PROGRESS NOTE ---
Restraint [id number] Immediate Situation Face to Face Evaluation Date: 03/13/24 Face to Face Evaluation Time: 19:24 Restraint Classification: Non-violent (Soft Restraint ONLY) Patient's Reaction & Behaviors Safety: Physically safe Harm: Potential harm to self Other: Attempting removal of medically necessary device(s) (On ventilator) Behavioral Condition Attitude: Other Attitude Comment: Sedated Behavior: Withdrawn (Sedated) Orientation: Non-responsive Mood: Other Evaluation Pertinent History/Illicit Drugs/Medications/Results: Intubated/sedated, post seizure
[2024-03-13] MEDS: levETIRAcetam 500 MG/5 ML VIAL IVP SCH (20:19)
[2024-03-13] MEDS ORDERED: levETIRAcetam INJ 500 MG in SODIUM CHLORIDE 0.9% 100ML 100 ML IV SCH (21:00)
[2024-03-13] MEDS: SODIUM CHLORIDE FLUSH 0.9% 10 ML SYRINGE IVP PRN (22:34)
[2024-03-14] MEDS: PROPOFOL 1000 MG/100 ML 1,000 MG/100 ML BOTTLE IV SCH (00:09)
[2024-03-14 05:02] LABS: ABG BASE EXCESS -0.5 mmol/L (-2.0-3.0); ABG HCO3 22.1 mmol/L (22.0-26.0); ABG OXYGEN SATURATION 97 % (94-98); ABG PCO2 31 mmHg (34-45); ABG PH 7.47 (7.35-7.45); ABG PO2 94 mmHg (80-100); ABG TCO2 23.1 MMOL/L (21.0-29.0); ALLEN TEST POSITIVE
[2024-03-14 05:03] LABS: ABG MODE OF VENTILATION ASSIST/CONTROL
[2024-03-14 05:04] LABS: ABG RESPIRATORY RATE 12 b/min
[2024-03-14 05:18] LABS: BASOPHILS % (AUTO) 0.2 %; EOSINOPHILS % (AUTO) 0.1 %; HCT - HEMATOCRIT 44.4 % (42.0-52.0); HGB - HEMOGLOBIN 15.1 g/dL (14.0-18.0); LYMPHOCYTES # (AUTO) 1.2 10^3/uL (1.5-3.5); LYMPHOCYTES % (AUTO) 10.2 %; MEAN CORPUSCULAR HEMOGLOBIN 30.4 pg (27.0-31.0); MEAN CORPUSCULAR VOLUME 89.5 fL (80.0-94.0); MEAN PLATELET VOLUME 10.2 fL (7.4-11.4); MONOCYTES # (AUTO) 0.8 10^3/uL (0.0-1.0); MONOCYTES % (AUTO) 7.4 %; NEUTROPHILS # (AUTO) 9.3 10^3/uL (1.5-6.6); NEUTROPHILS % (AUTO) 81.7 %; PLT - PLATELET COUNT 147 10^3/uL (130-450); RED BLOOD COUNT 4.96 10^6/uL (4.70-6.10); RED CELL DISTRIBUTION WIDTH 13.9 % (12.0-15.0); WHITE BLOOD COUNT 11.3 x10^3/uL (4.8-10.8)
[2024-03-14 05:25] LABS: VBG PH 7.365 (7.31-7.41)
[2024-03-14 05:31] LABS: CALCIUM 8.7 mg/dL (8.5-10.3); CREATININE 1.1 mg/dL (0.6-1.3); POTASSIUM 3.1 mmol/L (3.5-4.5)
[2024-03-14] MEDS: CALCIUM GLUC 1,000MG/50ML-NACL 1,000 MG/50 ML BAG IV ONE (08:19)
[2024-03-14] MEDS: NEUTRA-PHOS 250 MG TABLET PO SCH (08:19)
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
--- NOTE | 2024-03-14 17:06 | PROVIDER PROGRESS NOTE ---
Subjective Prog Note Date Prog Note Date: 03/14/24 Prog Note Time: 17:06 Subjective Subjective: This morning I had nursing stop sedation. We then slowly woke him up so he could follow commands from respiratory therapy. Neph was occasionally up to - 18. When he would go back to sleep his tidal volumes are dropped to 250. But when awake and stimulated tidal volumes go back up into the 400s. I felt that he was stable for extubation and I ordered extubation. Without the ET tube,he is confused, lethargic, slow speech. can answer questions but appears sleepy. I had physical therapy and Occupational Therapy work with him. They also found him lethargic. Sleeping. But he would open his eyes to verbal and tactile stimuli. It was difficult to keep him awake but he was able to do so when they continue stimulating him and asking him to sit up in the upright position. He is able to follow one-step simple commands but requires time and prompting. He has a residual left-sided weakness from his previous stroke. Required maximum assist x 2 when he went from supine to sitting. Was minimum assist just sitting at the edge of the bed. But became max assist when he had to sit up and stand. He could not initiate steps and they felt that it was not safe for him to go from out of bed to the chair because of his lethargy, slow response time, and overall generalized weakness. He lives with his significant other. She has a mental health disorder that is possibly schizophrenia. She states that he has become more difficult to take care of and she does not know if she can take care of him in their trailer. He spiked a fever immediately after intubation yesterday and when he came to [facility]. It resolved without intervention. Did another fever today, so I have gotten blood cultures and urine cultures. Review of his x-rays show no pneumonia on chest x-ray and CT of the head did not have any new lesions and just see significant encephalomalacia from his previous stroke. Urinalysis is without evidence of significant infection Current Medications Current Medications Current Medications: Current Medications Generic Name Dose Route Start Last Admin Trade Name Freq PRN Reason Stop Dose Admin Acetaminophen 650 mg 03/13/24 13:42 03/14/24 15:25 Acetaminophen 325 Mg Tablet PO 650 mg Q4HR PRN Administration Pain 1 to 4, or Fever Amlodipine Besylate 2.5 mg 03/13/24 14:30 03/14/24 08:19 Amlodipine 5 Mg Tablet PO 2.5 mg DAILY BEULAH Administration Hydralazine HCl 25 mg 03/13/24 15:30 03/14/24 15:25 Hydralazine 25 Mg Tablet PO 25 mg TID BEULAH Administration Hydralazine HCl 10 mg 03/13/24 15:18 03/13/24 17:16 Hydralazine Inj 20 Mg/Ml Vial IVP 10 mg Q6H PRN Administration Hypertensive Emergency Propofol 1,000 mg in 100 mls @ 5.34 mls/hr 03/13/24 22:00 03/14/24 07:00 Diprivan IV Infused .[id number] [facility] Titration Protocol 10 MCG/KG/MIN Levetiracetam 500 mg 03/14/24 21:00 Levetiracetam 250 Mg Tablet PO BID [facility] Lisinopril 40 mg 03/13/24 15:30 03/14/24 08:19 Lisinopril 20 Mg Tablet PO 40 mg DAILY [facility] Administration Morphine Sulfate 2 mg 03/13/24 13:42 03/14/24 02:37 Morphine 2 Mg/Ml Carpuject IVP 2 mg Q2HR PRN Administration Pain 8 to 10 Ondansetron HCl 4 mg 03/13/24 13:42 Ondansetron Odt 4 Mg Tablet TL Q6HR PRN Nausea / Vomiting Ondansetron HCl 4 mg 03/13/24 13:42 Ondansetron 4 Mg/2 Ml Vial IVP Q6HR PRN Nausea / Vomiting Sodium Chloride 10 ml 03/13/24 17:00 03/14/24 08:20 Sodium Chloride Flush 0.9% 10 Ml Syringe IVP 10 ml 0100,0900,1700 [facility] Administration Sodium Chloride 10 ml 03/13/24 13:42 03/13/24 22:34 Sodium Chloride Flush 0.9% 10 Ml Syringe IVP 10 ml PRN PRN Administration NEEDED PER PROVIDER ORDERS Objective Vital Signs/Intake & Output Reviewed Vital Signs: Yes Vital Signs: Vital Signs Temp Pulse Resp BP Pulse Ox 03/14/24 16:00 38.5 C H 84 22 131/68 H 93 03/14/24 15:00 74 21 136/74 H 97 Intake & Output: Intake & Output 03/12/24 03/13/24 03/14/24 01/09/25 23:59 23:59 23:59 23:59 Intake Total 1041 / 1041 404 / 404 Output Total 830 / 830 380 / 380 0 / 0 Balance 211 / 211 0 / 0 Weight (kg) 89 kg 89.5 kg 89 kg Objective General Appearance: positive No acute distress, Lethargic and Other (Disheveled elderly man with long hair, thompson. Seems sedated even though propofol was stopped 4 hours ago. He did receive quite a bit of benzodiazepines when he seized at home. That was yesterday.) Eyes Bilateral: positive PERRL and EOMI ENT: positive No signs of dehydration Neck: positive Nml inspection; negative No JVD or Stiff neck Respiratory: positive Chest non-tender, No respiratory distress and Breath sounds nml Cardiovascular: positive Regular rate & rhythm and No murmur Abdomen: positive Non-tender, No organomegaly and Nml bowel sounds Skin: positive Color nml, No rash and Warm Extremities: positive Non-tender, Full ROM and Nml appearance Neurologic/Psychiatric: positive Disoriented to person, Disoriented to place, Disoriented to time, Weakness and Slurred/abnml speech; negative Motor nml (Left leg weaker than right leg when I ask him to lift them off the bed. Left leg slightly inwardly rotated.) Babinski Reflex: Right: Down and Left: Up Lab Results 03/15/24 06:30 03/14/24 05:01 Other Labs: Lab Results x24hrs 03/15/24 03/14/24 Range/Units 06:30 21:30 WBC 9.0 (4.8-10.8) x10^3/uL RBC 4.51 L (4.70-6.10) 10^6/uL Hgb 13.6 L (14.0-18.0) g/dL Hct 40.7 L (42.0-52.0) % MCV 90.2 (80.0-94.0) fL MCH 30.2 (27.0-31.0) pg MCHC 33.4 (32.0-36.0) g/dL RDW 13.7 (12.0-15.0) % Plt Count 141 (130-450) 10^3/uL MPV 10.5 (7.4-11.4) fL Neut # (Auto) 7.0 H (1.5-6.6) 10^3/uL Lymph # (Auto) 1.4 L (1.5-3.5) 10^3/uL [place] # (Auto) 0.5 (0.0-1.0) 10^3/uL Eos # (Auto) 0.2 (0.0-0.7) 10^3/uL Baso # (Auto) 0.0 (0.0-0.1) 10^3/uL Absolute Nucleated RBC 0.00 x10^3/uL Nucleated RBC % 0.0 /100WBC VBG pH 7.447 H (7.31-7.41) Ionized Calcium 1.11 L (1.15-1.33) mmol/L Phosphorus 2.7 (2.5-5.0) mg/dL Nasal Adenovirus (PCR) NOT DETECTED Nasal B. parapertussis DNA (PCR) NOT DETECTED Nasal Coronavir 229E PCR NOT DETECTED Nasal Coronavir HKU1 PCR NOT DETECTED Nasal Coronavir NL63 PCR NOT DETECTED Nasal Coronavir OC43 PCR NOT DETECTED Nasal Enterovir/Rhinovir PCR NOT DETECTED Nasal Influenza B PCR NOT DETECTED Nasal Influenza A PCR NOT DETECTED Nasal Parainfluen 1 PCR NOT DETECTED Nasal Parainfluen 2 PCR NOT DETECTED Nasal Parainfluen 3 PCR NOT DETECTED Nasal Parainfluen 4 PCR NOT DETECTED Nasal RSV (PCR) NOT DETECTED Nasal B.pertussis DNA PCR NOT DETECTED Nasal C.pneumoniae (PCR) NOT DETECTED Zander Human Metapneumo PCR NOT DETECTED Nasal M.pneumoniae (PCR) NOT DETECTED Nasal SARS-CoV-2 (PCR) NOT DETECTED Assessment/Plan Problem List (1) Fever: Impression: 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 I thought that his fever was a result of the seizure yesterday and possible mild aspiration or a result of the seizure. But now I am wondering if his fever is what caused the seizure to happen. In looking for source of infection are not really finding anything. I have considered a lumbar puncture but he has no meningismus on exam. He is altered. I have redone blood cultures. I have redone urine culture. Start Rocephin empirically but I am treating possible UTI. I do not think he has fever of unknown origin. He could have a viral infection. I will ask for a viral swab. Use Tylenol as needed. (2) New onset seizure: Impression: Seizure threshold lowered by fever? No other causes found with drugs, electrolyte abnormalities. Not all I have extubated him, I will switch him to oral Keppra. I will also start a regular diet. Encouraged him to drink plenty of fluids since he has this fever. (3) Hypertension: Impression: At home he takes amlodipine and hydralazine and lisinopril. As well as metoprolol. All of this medication will be resumed today.This afternoon he is 131/68. Qualifiers: Hypertension type: unspecified Qualified Code(s): I10 - Essential (primary) hypertension (4) Status post cerebrovascular accident: Impression: He has a left body residual. Uses a cane or walker in his trailer. Getting increasingly more difficult to mobilize within his trailer. His significant other says that she does not know if she can take him home. Nevertheless, he was seen by PT and OT and he does have significant weakness. They [facility] a [facility]. Once he is medically stable and I figure out where his fever is coming from, we can then choice him and see if he is willing to go to rehab.
[2024-03-14] MEDS: cefTRIAXone 1 GM VIAL IVP SCH (18:54)
[2024-03-14] MEDS: levETIRAcetam 250 MG TABLET PO SCH (21:28)
[2024-03-14 22:55] LABS: B. PARAPERTUSSIS- RESP PCR PAN NOT DETECTED; B. PERTUSSIS- RESP PCR PANEL NOT DETECTED; C. PNEUMONIAE- RESP PCR PANEL NOT DETECTED; CORONAVIRUS 229E-RESP PCR NOT DETECTED; CORONAVIRUS HKU1-RESP PCR NOT DETECTED; CORONAVIRUS NL63-RESP PCR NOT DETECTED; CORONAVIRUS OC43-RESP PCR NOT DETECTED; HUMAN METAPNEUMOVIRUS NOT DETECTED; INFLUENZA A- RESP PCR PANEL NOT DETECTED; INFLUENZA B - RESP PCR PANEL NOT DETECTED; PARAINFLUENZA VIRUS 1 NOT DETECTED; PARAINFLUENZA VIRUS 2 NOT DETECTED; PARAINFLUENZA VIRUS 4 NOT DETECTED; RHINOVIRUS/ENTEROVIRUS NOT DETECTED; RSV- RESP PCR PANEL NOT DETECTED; SARS-CoV-2 -RESP PCR PANEL NOT DETECTED
[2024-03-14 22:56] LABS: M. PNEUMONIAE- RESP PCR PANEL NOT DETECTED
[2024-03-15 06:52] LABS: VBG PH 7.447 (7.31-7.41)
[2024-03-15 06:53] LABS: CALCIUM, IONIZED 1.11 mmol/L (1.15-1.33)
[2024-03-15 07:16] LABS: BASOPHILS % (AUTO) 0.2 %; EOSINOPHILS # (AUTO) 0.2 10^3/uL (0.0-0.7); EOSINOPHILS % (AUTO) 1.8 %; HCT - HEMATOCRIT 40.7 % (42.0-52.0); HGB - HEMOGLOBIN 13.6 g/dL (14.0-18.0); LYMPHOCYTES # (AUTO) 1.4 10^3/uL (1.5-3.5); MEAN CORPUSCULAR HEMOGLOBIN 30.2 pg (27.0-31.0); MEAN CORPUSCULAR HGB CONC 33.4 g/dL (32.0-36.0); MEAN CORPUSCULAR VOLUME 90.2 fL (80.0-94.0); MEAN PLATELET VOLUME 10.5 fL (7.4-11.4); MONOCYTES # (AUTO) 0.5 10^3/uL (0.0-1.0); NEUTROPHILS % (AUTO) 77.7 %; PLT - PLATELET COUNT 141 10^3/uL (130-450); RED BLOOD COUNT 4.51 10^6/uL (4.70-6.10); RED CELL DISTRIBUTION WIDTH 13.7 % (12.0-15.0)
[2024-03-15 08:37] VITALS: BP 117/58; TEMP 98.2; O2SAT 94
--- NOTE | 2024-03-15 12:25 | Discharge Summary ---
"Discharge Summary Admit Date: 03/13/24 Discharge Date: 03/15/24 Discharging Provider: Virginia Aldana MD Primary Care Provider: Golden Galeano MD Code Status: Attempt Resuscitation DIAGNOSES Discharge Diagnoses with Status of Each Condition: 1. Status epilepticus 2. Central apnea requiring temporary intubation 3. 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 Fever 5. Essential hypertension present on admission 6. 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 The previous stroke has left him with left-sided residual deficits. He uses a walker to ambulate. He has no antecedent change in status. There is no fever, chills, change in medication. Diet has been normal. P.o. intake has been normal. There is no abdominal pain. No urgency, frequency dysuria. There is no new medication. He was brought to the ER by EMS because he was dizzy with generalized weakness that began today, suddenly. It made him nauseated and 1 episode of emesis. He thought at first that this was his vertigo and he took some Zofran and meclizine. He then had a seizure. It is described as a generalized tonic- clonic seizure. It seems to last a very long time for them. Family called EMS and after EMS arrived, he had another seizure. He was given diazepam twice. And then intubated for airway control. He has no previous history of seizure disorder. In the ER he was afebrile. 36.7. Heart rate 111, respirations 22, blood pressure 134/90, in the ER he was intubated and unresponsive. Started on a propofol drip. Immediate CT scan does not show any acute bleeding. Acute changes. He has a prior stable right middle cerebral artery infarct. Prior right middle cerebral artery occlusion still present. The ER doctor loaded him with [address] Gastelum is asking if I could please place this patient in observation. The goal is to extubate him today after sedation from diazepam wears off. His hope that he will not seize again now that he has been loaded on Keppra. CONSULTS | PROCEDURES Procedures: Head CT is without acute intracranial pathology. Redemonstration of a large area of encephalomalacia within the right middle cerebral hemisphere as described. Consistent with prior infarct. CT angio of head and neck is with stable appearance of chronic occlusion of the right middle cerebral artery at the M1 segment. The right intracarotid artery is decreased in caliber compared to the left similar to prior. Stable chronic occlusion of the right [employer] INSPECTOR. No new acute intracranial arterial abnormalities. No significant abnormality seen within the arteries of the neck. ET tube tip is at the right mainstem bronchus, recommend retraction. Chest x-ray done for intubated patient shows endotracheal tube with tip approximately 1.5 cm above the kristin. Plain film of the abdomen for OG tube placement has no acute abdominal pathology. NG tube with the distal tip and distal sideport projecting below the level of the diaphragm. Consider advancing approximately 2 to 3 cm. Blood culture left arm positive for Staph epidermidis greater than 24 hours after culture done. Right arm was negative. Mouth culture done. Written as a respiratory. Oral elin growing. HOSPITAL COURSE Hospital Course: The patient was placed in the intensive care unit because of intubation. By the time he reached ICU, it was late in the afternoon. We do not have extra staffing after 7 PM and it was decided to keep him intubated overnight. We did not want to have to reintubate if we extubated him too early. He was maintained on a vent with propofol overnight and the next morning propofol was discontinued. Nif was -18. TV adequate. Over the course of 2 hours the patient was prompted and cued. He was able to follow commands. He was successfully extubated. He had intermittent fevers. He had already had a chest x-ray that showed no pneumonia. Urinalysis is negative. Abdominal exam was negative. The patient was lethargic, disoriented, and difficult to get a history out of. However with his cough he had quite purulent phlegm and I gave him a dose of Rocephin empirically. With a dose of Rocephin his fever resolved. Today the patient is alert and oriented to person, place, time but not situation. He has no recollection of what happened. He felt that he was doing fine with no antecedent illness and was surprised to find out he had seizure. Physical therapy does feel he needs rehab. He is ataxic, needs quite a bit of standby assist and press 1 person assist to get out of bed or to walk to the toilet. He lives in a trailer. His significant other and the person he delegates as his DPOA is already stating that she is overwhelmed with caregiver burden. The patient himself states he wants to go home. He has declined our offer of [facility] re[facility] referral for rehab. As such I am sending him home with home health. Medications at discharge will be this and medications he came in on with the addition of Keppra 500 mg p.o. twice daily. And cefdinir 300 mg for the next 7 days.He also has a low potassium but is greater than 3.0. He will be sent home on 10 mEq a day. Will need to be rechecked for his level with his PCP visit I reviewed a note from [facility] where he was seen by Dr. Jean Baptiste, cardiology February 08, 2024. The patient has a history of an ischemic stroke 11/2017 w RUE weakness from a lacunar stroke. Then he had an embolic stroke in September 2022 with detection of A-fib at that time. He has hypertension, hyperlipidemia, history of chest pain, chronically elevated bilirubin, PACs, PVCs and dizzy spells which appear to be vertigo. Echo August 2014 shows normal left ventricular and right ventricular function with LV ejection fraction 60 to 65%. Moderate pulmonary regurgitation. Echo April 2017 shows an ejection fraction of 60 to 65% with normal RV, mild [place], mild LVH. Transesophageal echo May 2018 with LVEF 60 to 65%. No intracardiac thrombus. No significant valvular pathology. Moderate sessile atherosclerotic plaque in the aortic arch. Echo September 22, 2022 with mild LVH, ejection fraction 66%. Normal RV. No significant valvular pathology. Grade 2 diastolic dysfunction. Moderate left atrial enlargement with mild MR, pulmonary artery systolic pressure 30 mmHg. A Holter in August 2014 with sinus rhythm and runs of SVT. Holter in February 2019 sinus rhythm with runs of SVT. No A-fib. Holter February 08, 2023 with first-degree AV block sinus. 18 SVT runs with the longest lasting 8 beats. PAC burden 3.2%, rare PVCs with burden less than 1%. No A-fib seen. April 2017 stress test was 4.6 metabolic equivalents. He only went 3 minutes and 29 seconds. In recovery PACs and PVCs. No ST-T wave Persantine Cardiolite was normal. Stress echo July 2012 was able to walk 7 minutes 6 seconds. He achieved 94% of target heart rate. No ischemic changes. After stress EF of 70 to 75%. Hypertensive blood pressure response. Changes that were diagnostic. I would like him to be seen by his primary care provider in the next [address] Golden Galeano. I recommend that he be referred to neurology for EEG. If the EEG is abnormal the patient should stay on his Keppra. If the EEG is without seizure etiology, the patient's seizure may have happened because of fever and a lowered seizure threshold. Now that the fever has resolved and is being treated for infection, his seizure disorder may have resolved. This document was made in part using voice recognition software. While efforts are made to proofread this document, sound alike and grammatical errors may occur. ALLERGIES Allergies Allergy/AdvReac Type Severity Reaction Status Date / Time Penicillins Allergy swelling Verified 03/19/24 09:45 pseudoepherine Allergy Unknown Uncoded 03/19/24 09:45 MEDICATIONS Ambulatory Orders Medication Instructions Recorded Confirmed hydralazine 25 mg tablet 25 mg PO TID #270 tabs 01/04/24 03/19/24 amlodipine 2.5 mg tablet 2.5 mg PO DAILY 03/13/24 03/19/24 atorvastatin 80 mg tablet 80 mg PO QPM 03/13/24 03/19/24 lisinopril 40 mg tablet 40 mg PO DAILY 03/13/24 03/19/24 metoprolol succinate 25 mg 12.5 mg PO DAILY 03/13/24 03/19/24 tablet,extended release 24 hr montelukast 10 mg tablet 10 mg PO QPM 03/13/24 03/19/24 potassium chloride 10 mEq 10 meq PO DAILY 03/13/24 03/19/24 tablet,extended release sertraline 25 mg tablet 25 mg PO DAILY 03/13/24 03/19/24 tamsulosin 0.4 mg capsule 0.4 mg PO DAILY 03/13/24 03/19/24 terbinafine HCl 250 mg tablet 250 mg PO DAILY 03/13/24 03/19/24 cefdinir 300 mg capsule 300 mg PO BID #14 caps 03/15/24 03/19/24 levetiracetam 250 mg tablet 500 mg (2 x 250 mg) PO BID #120 03/15/24 03/19/24 tabs apixaban 5 mg tablet (Eliquis) 5 mg PO BID #180 tabs 03/16/24 03/19/24 doxycycline hyclate 100 mg capsule 100 mg PO BID #10 caps 03/19/24 03/19/24 meclizine 25 mg tablet (Motion 25 mg PO Q6H PRN Dizziness #20 tabs 03/19/24 Sickness (meclizine)) PHYSICAL EXAM AT DISCHARGE General Appearance: positive No acute distress, Alert and Other (Disheveled elderly man who looks older than stated age, 6 foot, 89 kg) Eyes Bilateral: positive PERRL ENT: positive No signs of dehydration Neck: positive No JVD; negative Stiff neck Respiratory: positive Chest non-tender, No respiratory distress and Other (Occasional coarse rhonchi that clear with a deep cough.) Cardiovascular: positive Regular rate & rhythm Abdomen: positive Non-tender, No organomegaly and Nml bowel sounds Skin: positive Warm and Dry Extremities: positive Full ROM and No pedal edema Neurologic/Psychiatric: positive Oriented x3, Slurred/abnml speech (Slow slightly dysarthric or slurred speech) and Other (Disoriented to situation.); negative Motor nml (4 out of 5 left upper extremity and left lower extremity weakness compared to the right extremity.) or Mood/affect nml (While he is able to move his left leg, it does not come off the bed easily. Plantar and dorsiflexion affected with weakness. Left arm also weaker than right arm. Residual definitely present in comparison to right side from old stroke) LABS 03/15/24 06:30 03/14/24 05:01 TIME SPENT Time Spent in Discharge (Minutes): 40 Discharge Plan Discharge Patient Disposition: Home Health Service Condition: Stable Medically Cleared Date:: 03/15/24 Prescriptions: New levetiracetam 250 mg Tablet 500 mg PO BID Qty: 120 0RF cefdinir 300 mg capsule 300 mg PO BID Qty: 14 0RF Continued hydralazine 25 mg tablet 25 mg PO TID Qty: 270 2RF atorvastatin 80 mg tablet 80 mg PO QPM Patient Comments: TAKE 1 TABLET BY MOUTH ONCE DAILY potassium chloride 10 mEq tablet extended release 10 meq PO DAILY terbinafine HCl 250 mg tablet 250 mg PO DAILY Patient Comments: TAKE 1 TABLET BY MOUTH ONCE DAILY. (GET BLOOD WORK MONTHLY) sertraline 25 mg tablet 25 mg PO DAILY Patient Comments: TAKE 1 TABLET BY MOUTH ONCE DAILY montelukast 10 mg tablet 10 mg PO QPM Patient Comments: TAKE 1 TABLET BY MOUTH ONCE DAILY metoprolol succinate 25 mg tablet extended release 24 hr 12.5 mg PO DAILY Patient Comments: TAKE 1/2 (ONE-HALF) TABLET BY MOUTH ONCE DAILY lisinopril 40 mg tablet 40 mg PO DAILY Patient Comments: TAKE 1 TABLET BY MOUTH ONCE DAILY amlodipine 2.5 mg tablet 2.5 mg PO DAILY Patient Comments: TAKE 1 TABLET BY MOUTH ONCE DAILY tamsulosin 0.4 mg capsule 0.4 mg PO DAILY No Action Eliquis 5 mg tablet 5 mg PO BID Qty: 180 0RF meclizine [Motion Sickness (meclizine)] 25 mg tablet 25 mg PO Q6H PRN (Reason: Dizziness) Qty: 20 0RF doxycycline hyclate 100 mg capsule 100 mg PO BID Qty: 10 0RF Diet: Regular Interventions: Discharge Last Done: 03/15/24 13:28 Discharge Checklist - Nursing Last Done: 03/15/24 13:28 Health Concerns: You already have a history of stroke and that left you with left-sided body weakness, memory problems, speech problems. It is getting more more difficult for you to live in your trailer. You rely on your girlfriend to take care of you and she is starting to have more problems taking care of you. You were witnesses having a seizure. They called an ambulance and the ambulance service so you have yet another seizure. In order to protect her airway, because you were not breathing, you were intubated and a breathing tube was placed down your throat and we breathe for you. You came into the hospital and we gave you seizure medications through your veins. Since being here you have not had any seizures. The CAT scan of your head does not show a new stroke. You have an extensive old stroke. We were trying to figure out why you are having new seizures and we think is because you have a current bronchial infection. No pneumonia. The bronchial infection gave you fever and the fever may have caused the seizure. Your fever went away once we gave you antibiotics. Physical therapy and Occupational Therapy did see you while you were here. They do think that you have enough weakness and fatigue you should go to a long-term for rehab. You have refused. You want to go home. Instructions for discharge: 1. Please see Golden Galeano in follow-up. He is your primary care provider and needs to examine your lungs and make sure that you are no longer having fevers. 2. Dr. Galeano may need to send you to the neurologist to get an electroencephalogram (EEG) to see if you need to stay on seizure medications. If your fever cause the seizures, you really do not need to stay on Keppra. But if you do have a seizure disorder diagnosed on EEG you need to stay on Keppra for the rest of your life. 3. 2 prescriptions have been called into the pharmacy. 1 is cefdinir. Cefdinir is a remote cousin to penicillin. You are allergic to penicillin but you tolerated the medication we gave you in the hospital. We also have called in Keppra, the seizure medication, and that is to be taken twice a day. 3. Because you are refusing to go to a long-term for rehab, I am ordering home health with PT and OT to see if someone coming to your trailer may help you get stronger. Print Language: Swedish Patient Instructions: Epilepsy Meds, Epilepsy Seizures Follow-up Care: Golden Galeano MD [Primary Care Provider] -"
== END 2024-03-15 13:57 | disposition home or self-care (01) ==
LOC: ED 10:30 → ICU 10:30
PROVIDERS: ADMIT Specialist; ATTEND Specialist
DX: R27.0 Ataxia, unspecified; B35.1 Tinea unguium; I69.319 Unspecified symptoms and signs involving cognitive functions following cerebral infarction; G47.31 Primary central sleep apnea; I69.354 Hemiplegia and hemiparesis following cerebral infarction affecting left non-dominant side; I66.21 Occlusion and stenosis of right posterior cerebral artery; Z79.01 Long term (current) use of anticoagulants; I10 Essential (primary) hypertension; G40.401 Other generalized epilepsy and epileptic syndromes, not intractable, with status epilepticus; I66.01 Occlusion and stenosis of right middle cerebral artery; Z78.1 Physical restraint status; G93.89 Other specified disorders of brain; J40 Bronchitis, not specified as acute or chronic; R53.1 Weakness; I69.392 Facial weakness following cerebral infarction; I69.398 Other sequelae of cerebral infarction; I69.328 Other speech and language deficits following cerebral infarction